=== PATIENT | female | born 1995 | race Caucasian/White ===

== ENCOUNTER 2020-04-13 21:05 | Emergency (ER) | payer OTHER ==
[2020-04-13] MEDS ORDERED: Sodium Chloride 0.9% 1000 ML 1,000 ML IV STA (21:16)
[2020-04-13] MEDS ORDERED: Zofran 4 MG/2 ML VIAL IV ONE (21:16)
[2020-04-13] MEDS ORDERED: Hydromorphone 1 mg/ml Ampule IV ONE ×2 (21:16→22:33)
[2020-04-13] MEDS ORDERED: TORAdol 30 mg Injection IV ONE (21:16)
[2020-04-13] MEDS ORDERED: Hydromorphone 1 mg/ml Ampule ONE ×2 (21:20→22:33)
[2020-04-13] MEDS ORDERED: Zofran 4 MG/2 ML VIAL ONE (21:20)
[2020-04-13] MEDS ORDERED: TORAdol 30 mg Injection ONE (21:20)
[2020-04-13] MEDS ORDERED: Sodium Chloride 0.9% 1000 ML 1,000 ML ONE (21:20)
[2020-04-13 21:54] LABS: Absolute Neutrophil Ct (ANC) 3.74 (1.4-6.9); BASOPHIL % 0.3 % (0.0-0.4); Basophil (Absolute #) 0.02 (0-0.4); Eosinophil (Absolute #) 0.06 (0-0.5); Hematocrit 40.3 % (35-47); Hemoglobin 13.3 gm/dl (12.0-16.0); Lymphocyte (Absolute #) 1.86 (1.0-4.6); Lymphocytes % 30.1 % (24.0-44.0); Mean Cell Volume 92.2 fl (78-100); Mean Corpuscular Hemoglobin 30.4 pg (26-32); Mean Platelet Volume 9.6 fl (7.5-11.0); Monocyte (Absolute #) 0.49 (0.0-1.3); Monocytes % 7.9 % (0.0-12.0); Neutrophil % 60.7 % (36.0-66.0); Platelet Count 328 K/mm3 (150-450); Red Blood Count 4.37 M/mm3 (4.1-5.4); White Blood Count 6.2 K/mm3 (4.0-10.5)
[2020-04-13 22:10] LABS: ALBUMIN 4.4 g/dL (3.5-5.0); ALKALINE PHOSPHATASE 78 U/L (38-126); AMYLASE 93 U/L (30-110); ANION GAP 12.2 MEQ/L (5-15); BLOOD UREA NITROGEN 11 mg/dL (7-17); CHLORIDE 104 mmol/L (98-107); Calcium 9.4 mg/dL (8.4-10.2); Carbon Dioxide 25 mmol/L (22-30); Glucose 120 mg/dL (74-106); LIPASE 179 U/L (23-300); Potassium 3.8 mmol/L (3.5-5.1); SGOT/AST 21 U/L (14-36); SGPT/ALT 14 U/L (0-35); SODIUM 138 mmol/L (137-145); Total Protein 7.7 g/dL (6.3-8.2)
[2020-04-13 22:14] LABS: Appearance CLOUDY (CLEAR); Bilirubin NEGATIVE (NEGATIVE); Blood NEGATIVE Ery/ul (0-5); Glucose NEGATIVE (NEGATIVE); Ketones NEGATIVE (NEGATIVE); Leukocyte Esterase NEGATIVE (NEGATIVE); Mucus SLIGHT /HPF (NEGATIVE); Nitrite NEGATIVE (NEGATIVE); Protein,Urine Dip NEGATIVE (Negative); Specific Gravity 1.013 (1.005-1.025); Urobilinogen NEGATIVE mg/dL (0-1)
[2020-04-13 23:10] VITALS: O2SAT 99
[2020-04-13] MEDS ORDERED: NORCO 5/325 MG PO ONE (23:56)
--- NOTE | 2020-04-13 23:56 | ERPHSYRPT ---
- History of Present Illness Patient Subjective Stated Complaint: pt states that she was standing when she began to have severe abd pain, pt states that she has stomach problems, pt states that the pain is in her rt lower quad and radiates to back Triage Nursing Assessment: pt came into the er via wheelchair, pt is axo x3, pt in bend over and guarding RLQ, pt states that pain is 8/10, pt states that pain radiates to rt flank area, pt has active bowel sounds, tenderness to RLQ, hypertensive, clear lung sound Physician History: Patient is a 24-year-old female presents with a sudden onset approximately 1 hour prior to arrival of severe right colicky flank pain. She has had some nausea and some vomiting radiates into the vaginal area she has had no fever chills or sweats. Timing/Duration: today Activities at Onset: none Quality: stabbing, throbbing Abdominal Pain Onset Location: flank (Right flank) Pain Radiation: groin Severity of Pain-Max: moderate Severity of Pain-Current: moderate Modifying Factors: Improves With: nothing Allergies/Adverse Reactions: banana Allergy (Verified 04/13/20 21:15) latex Allergy (Verified 04/13/20 21:15) mold Allergy (Verified 04/13/20 21:15) Home Medications: Diltiazem HCl [Diltiazem 12Hr ER] 120 mg PO 04/13/20 [History] Levonorgestrel-Ethin Estradiol [[place]iss[place]-28 Tablet] 1 tab PO DAILY 04/13/20 [History] Hx Tetanus, Diphtheria Vaccination/Date Given: Yes Hx Influenza Vaccination/Date Given: Yes Hx Pneumococcal Vaccination/Date Given: No Travel Risk - International Travel Have you traveled outside of the country in past 3 weeks: No - Coronavirus Screening Are you exhibiting any of the following symptoms?: No Symptoms: Vomiting/Diarrhea Close contact with a COVID-19 positive Pt in past 14-21 Days: No - Review of Systems Constitutional: No Fever, No Chills Eyes: No Symptoms Ears, Nose, & Throat: No Symptoms Respiratory: No Cough, No Dyspnea Cardiac: No Chest Pain, No Edema, No Syncope Abdominal/Gastrointestinal: Nausea, Vomiting, No Abdominal Pain, No Diarrhea Genitourinary Symptoms: Flank Pain, No Dysuria Musculoskeletal: No Back Pain, No Neck Pain Skin: No Rash Neurological: No Dizziness, No Focal Weakness, No Sensory Changes Psychological: No Symptoms Endocrine: No Symptoms All Other Systems: Reviewed and Negative - Past Medical History Pertinent Past Medical History: Yes Cardiac History: Hypertension - Past Surgical History Past Surgical History: Yes - Social History Smoking Status: Never smoker Exposure to second hand smoke: Yes Drug Use: none Patient Lives Alone: No - Female History Hx Now: No (unknown) - Nursing Vital Signs Nursing Vital Signs: Initial Vital Signs Temperature 97.4 F 04/13/20 21:18 Pulse Rate 115 H 04/13/20 21:18 Respiratory Rate 24 04/13/20 21:18 Blood Pressure 175/133 04/13/20 21:18 O2 Sat by Pulse Oximetry 100 04/13/20 21:18 Pain Scale Pain Intensity 5 - Physical Exam General Appearance: no apparent distress, alert Eye Exam: PERRL/EOMI, eyes nml inspection Ears, Nose, Throat Exam: normal ENT inspection, pharynx normal, moist mucous membranes Neck Exam: normal inspection, non-tender, supple, full range of motion Respiratory Exam: normal breath sounds, lungs clear, No respiratory distress Cardiovascular Exam: regular rate/rhythm, normal heart sounds Gastrointestinal/Abdomen Exam: soft, No tenderness, No mass Back Exam: normal inspection, normal range of motion, No CVA tenderness, No vertebral tenderness Extremity Exam: normal inspection, normal range of motion, pelvis stable Neurologic Exam: alert, oriented x 3, cooperative, normal mood/affect, nml cerebellar function, sensation nml, No motor deficits Skin Exam: normal color, warm, dry SpO2: 99 - Course Nursing assessment & vital signs reviewed: Yes - CT Exams Abdomen/Pelvis CT Interpretation: Other (No acute inflammatory process identified) Ordered Tests: Active Orders 24 hr Category Date Time Status IV Insertion STAT Care 04/13/20 21:16 Active ABDOMEN AND PELVIS W CONTRAST [CT] Stat Exams 04/13/20 22:34 Taken CHEST 1 VIEW (PORTABLE) Stat Exams 04/13/20 21:16 Taken AMYLASE Stat Lab 04/13/20 21:30 Completed CBC W DIFF Stat Lab 04/13/20 21:30 Completed CMP Stat Lab 04/13/20 21:30 Completed HCG QUALITATIVE,SERUM Stat Lab 04/13/20 21:30 Completed LIPASE Stat Lab 04/13/20 21:30 Completed Lactic Acid Stat Lab 04/13/20 21:46 Completed UA W/RFX UR CULTURE Stat Lab 04/13/20 21:30 Completed Medication Summary Discontinued Medications Generic Name Dose Route Start Last Admin Trade Name Kamaljit PRN Reason Stop Dose Admin Hydromorphone HCl 1 mg 04/13/20 21:16 04/13/20 21:44 Hydromorphone 1 Mg/Ml Ampule IV 04/13/20 21:17 1 mg STAT ONE Administration Hydromorphone HCl Confirm 04/13/20 21:20 Hydromorphone 1 Mg/Ml Ampule Administered 04/13/20 21:21 Dose 1 mg .ROUTE .STK-MED ONE Hydromorphone HCl 1 mg 04/13/20 22:33 04/13/20 22:34 Hydromorphone 1 Mg/Ml Ampule IV 04/13/20 22:34 1 mg STAT ONE Administration Hydromorphone HCl Confirm 04/13/20 22:33 Hydromorphone 1 Mg/Ml Ampule Administered 04/13/20 22:34 Dose 1 mg .ROUTE .STK-MED ONE Sodium Chloride 1,000 mls @ 999 mls/hr 04/13/20 21:16 04/13/20 22:45 Sodium Chloride 0.9% 1000 Ml IV 04/13/20 22:16 Infused .Q1H1M STA Infusion Sodium Chloride Confirm 04/13/20 21:20 Sodium Chloride 0.9% 1000 Ml Administered 04/13/20 21:21 Dose 1,000 mls @ ud .ROUTE .STK-MED ONE Ketorolac Tromethamine 30 mg 04/13/20 21:16 04/13/20 21:44 Toradol 30 Mg Injection IV 04/13/20 21:17 30 mg STAT ONE Administration Ketorolac Tromethamine Confirm 04/13/20 21:20 Toradol 30 Mg Injection Administered 04/13/20 21:21 Dose 30 mg .ROUTE .STK-MED ONE Ondansetron HCl 4 mg 04/13/20 21:16 04/13/20 21:44 Zofran 4 Mg/2 Ml Vial IV 04/13/20 21:17 4 mg STAT ONE Administration Ondansetron HCl Confirm 04/13/20 21:20 Zofran 4 Mg/2 Ml Vial Administered 04/13/20 21:21 Dose 4 mg .ROUTE .STK-MED ONE Lab/Rad Data: Laboratory Result Diagrams 04/13/20 21:30 04/13/20 21:30 Laboratory Results 04/13/20 04/13/20 04/13/20 Range/Units 21:46 21:30 21:30 WBC (4.0-10.5) K/mm3 RBC (4.1-5.4) M/mm3 Hgb (12.0-16.0) gm/dl Hct (35-47) % MCV (78-100) fl MCH (26-32) pg MCHC (32-36) g/dl RDW (11.5-14.0) % Plt Count (150-450) K/mm3 MPV (7.5-11.0) fl Gran % (36.0-66.0) % Eos # (Auto) (0-0.5) Absolute Lymphs (auto) (1.0-4.6) Absolute Monos (auto) (0.0-1.3) Lymphocytes % (24.0-44.0) % Monocytes % (0.0-12.0) % Eosinophils % (0.00-5.0) % Basophils % (0.0-0.4) % Absolute Granulocytes (1.4-6.9) Basophils # (0-0.4) Sodium (137-145) mmol/L Potassium (3.5-5.1) mmol/L Chloride (98-107) mmol/L Carbon Dioxide (22-30) mmol/L Anion Gap (5-15) MEQ/L BUN (7-17) mg/dL Creatinine (0.52-1.04) mg/dL Estimated GFR ML/MIN Glucose (74-106) mg/dL Lactic Acid 2.4 H (0.4-2.0) Calcium (8.4-10.2) mg/dL Total Bilirubin (0.2-1.3) mg/dL AST (14-36) U/L ALT (0-35) U/L Alkaline Phosphatase (38-126) U/L Serum Total Protein (6.3-8.2) g/dL Albumin (3.5-5.0) g/dL Amylase (30-110) U/L Lipase (23-300) U/L Serum , Qual NEGATIVE (Negative) Urine Color YELLOW (YELLOW) Urine Appearance CLOUDY (CLEAR) Urine pH 9.0 (5-6) Ur Specific [place] 1.013 (1.005-1.025) Urine Protein NEGATIVE (Negative) Urine Ketones NEGATIVE (NEGATIVE) Urine Blood NEGATIVE (0-5) Joshua/ul Urine Nitrite NEGATIVE (NEGATIVE) Urine Bilirubin NEGATIVE (NEGATIVE) Urine Urobilinogen NEGATIVE (0-1) mg/dL Ur Leukocyte Esterase NEGATIVE (NEGATIVE) Urine WBC (Auto) NONE (0-5) /HPF Urine RBC (Auto) 3-5 (0-2) /HPF U Epithel Cells (Auto) NONE (FEW) /HPF Urine Bacteria (Auto) NONE (NEGATIVE) /HPF Urine Mucus (Auto) SLIGHT (NEGATIVE) /HPF Urine Culture Reflexed NO (NO) Urine Glucose NEGATIVE (NEGATIVE) mg/dL 04/13/20 04/13/20 Range/Units 21:30 21:30 WBC 6.2 (4.0-10.5) K/mm3 RBC 4.37 (4.1-5.4) M/mm3 Hgb 13.3 (12.0-16.0) gm/dl Hct 40.3 (35-47) % MCV 92.2 (78-100) fl MCH 30.4 (26-32) pg MCHC 33.0 (32-36) g/dl RDW 13.0 (11.5-14.0) % Plt Count 328 (150-450) K/mm3 MPV 9.6 (7.5-11.0) fl Gran % 60.7 (36.0-66.0) % Eos # (Auto) 0.06 (0-0.5) Absolute Lymphs (auto) 1.86 (1.0-4.6) Absolute Monos (auto) 0.49 (0.0-1.3) Lymphocytes % 30.1 (24.0-44.0) % Monocytes % 7.9 (0.0-12.0) % Eosinophils % 1.0 (0.00-5.0) % Basophils % 0.3 (0.0-0.4) % Absolute Granulocytes 3.74 (1.4-6.9) Basophils # 0.02 (0-0.4) Sodium 138 (137-145) mmol/L Potassium 3.8 (3.5-5.1) mmol/L Chloride 104 (98-107) mmol/L Carbon Dioxide 25 (22-30) mmol/L Anion Gap 12.2 (5-15) MEQ/L BUN 11 (7-17) mg/dL Creatinine 0.90 (0.52-1.04) mg/dL Estimated GFR > 60.0 ML/MIN Glucose 120 H (74-106) mg/dL Lactic Acid (0.4-2.0) Calcium 9.4 (8.4-10.2) mg/dL Total Bilirubin 0.50 (0.2-1.3) mg/dL AST 21 (14-36) U/L ALT 14 (0-35) U/L Alkaline Phosphatase 78 (38-126) U/L Serum Total Protein 7.7 (6.3-8.2) g/dL Albumin 4.4 (3.5-5.0) g/dL Amylase 93 (30-110) U/L Lipase 179 (23-300) U/L Serum , Qual (Negative) Urine Color (YELLOW) Urine Appearance (CLEAR) Urine pH (5-6) Ur Specific [place] (1.005-1.025) Urine Protein (Negative) Urine Ketones (NEGATIVE) Urine Blood (0-5) Joshua/ul Urine Nitrite (NEGATIVE) Urine Bilirubin (NEGATIVE) Urine Urobilinogen (0-1) mg/dL Ur Leukocyte Esterase (NEGATIVE) Urine WBC (Auto) (0-5) /HPF Urine RBC (Auto) (0-2) /HPF U Epithel Cells (Auto) (FEW) /HPF Urine Bacteria (Auto) (NEGATIVE) /HPF Urine Mucus (Auto) (NEGATIVE) /HPF Urine Culture Reflexed (NO) Urine Glucose (NEGATIVE) mg/dL - Progress Progress: improved - Departure Departure Disposition: Home Clinical Impression: Right flank pain Condition: Stable Critical Care Time: No Referrals: PEYTON LARA NP [Primary Care Provider] - Instructions: Acute Abdomen (Belly Pain), Adult (DC) Prescriptions: Hydrocodone/APAP 5-325 Tab^^^ [[place] 5-325 Tablet^^^] 1 each PO Q6H 3 Days #12 tablet MDD 6
[2020-04-14] MEDS ORDERED: NORCO 5/325 MG ONE (00:03)
[2020-04-14 00:23] VITALS: BP 146/106; PULSE 120
--- NOTE | 2020-04-14 09:20 | XRAY ---
Indication: Abdomen pain. Comparison: None Portable chest demonstrates normal heart, lungs, and bony thorax.
--- NOTE | 2020-04-14 09:20 | XRAY ---
Indication: Right lower quadrant pain. Vomiting and diarrhea. Multiple contiguous axial images obtained through the abdomen and pelvis using 80 cc Isovue 370 contrast only. Comparison: August 18, 2011. Lung bases demonstrates new 7 mm peripheral right lower lobe noncalcified nodule, possibly granulomatous in this demographic. No infiltrate or effusion. Heart is not enlarged. Stomach is distended with food. Noncontrasted stomach and bowel loops appear nonobstructed. Normal appendix. Mild diffuse scattered colonic fecal debris throughout. No free fluid/air. New 2 mm left pelvic phlebolith. Remaining liver, gallbladder, pancreas, spleen, adrenal glands, kidneys, ureters, bladder, uterus, and aorta appear unremarkable. Osseous structures intact. No ventral or inguinal hernias. Impression: 1. Mild fecal stasis without obstruction. 2. New right lower lobe noncalcified micronodule probably granulomatous. 3. Remaining CT abdomen/pelvis with contrast exam is negative. Comment: Preliminary interpretation was made by [facility]. No critical discrepancy.
== END 2020-04-14 00:16 | disposition home or self-care (01) ==
LOC: ED 21:05
DX: R10.31 Right lower quadrant pain (principal); I10 Essential (primary) hypertension
CPT/HCPCS: 36000; 36415; 71045; 74177; 80053; 81001; 81025; 82150; 83605; 83690; 85025; 96360; 96374; 96375; 96376; 99284; J1170; J1885; J2405; A9270-GY

== ENCOUNTER 2021-02-20 16:55 | Emergency (ER) | payer OTHER ==
[2021-02-20 17:45] LABS: ALBUMIN 4.4 g/dL (3.5-5.0); ALKALINE PHOSPHATASE 85 U/L (38-126); BLOOD UREA NITROGEN 9 mg/dL (7-17); CHLORIDE 103 mmol/L (98-107); Calcium 9.5 mg/dL (8.4-10.2); Carbon Dioxide 24 mmol/L (22-30); Creatinine 1 0.58 mg/dL (0.52-1.04); EST GLOMERULAR FILTRATION RATE > 60.0 ML/MIN; Glucose 100 mg/dL (74-106); Potassium 3.6 mmol/L (3.5-5.1); SGOT/AST 24 U/L (14-36); SGPT/ALT 17 U/L (0-35); SODIUM 135 mmol/L (137-145); Total Protein 7.2 g/dL (6.3-8.2)
[2021-02-20 17:48] LABS: Amourphous Crystal FEW /HPF (NEGATIVE); Appearance CLOUDY (CLEAR); Bacteria RARE /HPF (NEGATIVE); Bilirubin NEGATIVE (NEGATIVE); Blood NEGATIVE Ery/ul (0-5); Epithelial Cells RARE /HPF (FEW); Glucose NEGATIVE (NEGATIVE); Ketones TRACE (NEGATIVE); Leukocyte Esterase NEGATIVE (NEGATIVE); Mucus SLIGHT /HPF (NEGATIVE); Nitrite NEGATIVE (NEGATIVE); Protein,Urine Dip NEGATIVE (Negative); RBC 0-2 /HPF (0-2); Specific Gravity 1.018 (1.005-1.025); Urobilinogen 2 mg/dL (0-1)
[2021-02-20] MEDS ORDERED: TRANDATE 20 MG/4 ML SYRINGE IV ONE ×2 (18:21→18:23)
[2021-02-20] MEDS ORDERED: Zofran 4 MG/2 ML VIAL IV ONE (19:01)
[2021-02-20] MEDS ORDERED: SUBLIMAZE 100 MCG/2 ML IV ONE (19:01)
[2021-02-20] MEDS ORDERED: SUBLIMAZE 100 MCG/2 ML ONE (19:02)
[2021-02-20] MEDS ORDERED: Zofran 4 MG/2 ML VIAL ONE (19:02)
--- NOTE | 2021-02-20 19:07 | ERPHSYRPT ---
- History of Present Illness Source: patient Patient Subjective Stated Complaint: States that she is 9 weeks and her blood pressure was 140/[address] Rose told her to come to the ER, pt has a hx of htn and they took her off of her blood pressure medicine when they found out she was Triage Nursing Assessment: Pt was brought to the ER by her boyfriend, rates head pain as 6/10, hypertensive, bounding pulses, skin n/w/d, 9 weeks , doesn't appear to be in any distress Physician History: 25 yo wf 10wks w h/o HTN who was taking Lisinopril/Lopressor until her 4th wk of present w a frontal FRANCO since 15:00 w elevated BP. Pt states that she gets a FRANCO when her BP is elevated. Pt has her typical N/V as she has had during her but denies trauma/focal weakness/fever. Spoke w Dr. Rose who wants to tx HTN w Labetalol IV and Labetalol 100mg po BID. Pt denies vag bleeding/DC. Timing/Duration: yesterday Quality: aching Head Pain Location: frontal Severity of Pain-Max: moderate Severity of Pain-Current: moderate Recent Head Trauma: occasional headaches Modifying Factors: Improves With: other (Elevated BP). Worsens With: exposure to light, immobilization, medication, movement, rest, noise, position Associated Symptoms: nausea/vomiting, weakness, No confusion, No dizziness, No fatigue, No facial pain, No fever/chills, No flushing, No light-headedness, No loss of consciousness, No nasal congestion, No nasal drainage, No neck pain, No numbness in legs/feet, No rash, No sweating, No scotoma, No seizures, No sinus i nfection, No sensitive to light, No speech problems, No stiff neck, No trouble walking, No vision changes, No visual disturbance Allergies/Adverse Reactions: avocado Allergy (Verified 02/20/21 17:16) banana Allergy (Verified 02/20/21 17:16) latex Allergy (Verified 02/20/21 17:16) mold Allergy (Verified 02/20/21 17:16) Home Medications: Vits W-Ca,Fe,FA(<1Mg) [] 1 each PO DAILY 02/20/21 [History] Hx Tetanus, Diphtheria Vaccination/Date Given: Yes Hx Influenza Vaccination/Date Given: Yes Hx Pneumococcal Vaccination/Date Given: No Travel Risk - International Travel Have you traveled outside of the country in past 3 weeks: No - Coronavirus Screening Are you exhibiting any of the following symptoms?: No Close contact with a COVID-19 positive Pt in past 14-21 Days: No - Vaccine Status Have you recieved a Covid-19 vaccination: No - Review of Systems Constitutional: No Symptoms Eyes: No Symptoms Ears, Nose, & Throat: No Symptoms Respiratory: No Symptoms Cardiac: No Symptoms Abdominal/Gastrointestinal: No Symptoms Genitourinary Symptoms: No Symptoms Musculoskeletal: No Symptoms Skin: No Symptoms Neurological: No Symptoms, Headache Psychological: No Symptoms Endocrine: No Symptoms Hematologic/Lymphatic: No Symptoms Immunological/Allergic: No Symptoms - Past Medical History Pertinent Past Medical History: Yes Cardiac History: Hypertension - Past Surgical History Past Surgical History: Yes - Social History Smoking Status: Never smoker Exposure to second hand smoke: Yes Drug Use: none Patient Lives Alone: No Significant Family History: no pertinent family hx - Female History Hx Now: Yes Expected Date of Delivery: 09/19/21 - Nursing Vital Signs Nursing Vital Signs: Initial Vital Signs Pulse Rate 122 H 02/20/21 17:06 Blood Pressure 173/113 02/20/21 17:06 O2 Sat by Pulse Oximetry 100 02/20/21 17:06 Pain Scale Pain Intensity 0 - Physical Exam General Appearance: no apparent distress Eye Exam: PERRL/EOMI, eyes nml inspection Ears, Nose, Throat Exam: normal ENT inspection, TMs normal, pharynx normal, moist mucous membranes Neck Exam: normal inspection, non-tender, supple, full range of motion, No meningismus, No mass, No Brudzinski, No Kernig's Respiratory Exam: normal breath sounds, lungs clear, airway intact Cardiovascular Exam: regular rate/rhythm, normal heart sounds, normal peripheral pulses, No murmur Gastrointestinal/Abdominal Exam: soft, normal bowel sounds, No tenderness Back Exam: normal inspection, normal range of motion, No CVA tenderness Extremity Exam: normal inspection, normal range of motion Mental Status Exam: alert, oriented x 3, cooperative formwork carpenter Exam: normal hearing, normal speech, PERRL Coordination/Gait Exam: normal finger to nose, normal gait, normal cerebellar function Motor/Sensory Exam: no motor deficit, no sensory deficit, no pronator drift, negative Babinski's sign DTR Exam: bicep (R): 2+, bicep (L): 2+ Skin Exam: normal color, warm, dry Lymphatic Exam: No adenopathy SpO2 Interpretation: normal SpO2: 99 O2 Delivery: Room Air - Course Nursing assessment & vital signs reviewed: Yes Ordered Tests: Active Orders 24 hr Category Date Time Status IV Insertion STAT Care 02/20/21 17:17 Completed CMP Stat Lab 02/20/21 17:35 Completed UA W/RFX UR CULTURE Stat Lab 02/20/21 17:34 Completed Medication Summary Discontinued Medications Generic Name Dose Route Start Last Admin Trade Name Yarielq PRN Reason Stop Dose Admin Fentanyl Citrate 50 mcg 02/20/21 19:01 02/20/21 19:04 Sublimaze 100 Mcg/2 Ml IV 02/20/21 19:02 50 mcg STAT ONE Administration Fentanyl Citrate Confirm 02/20/21 19:02 Sublimaze 100 Mcg/2 Ml Administered 02/20/21 19:03 Dose 100 mcg .ROUTE .STK-MED ONE Labetalol HCl 10 mg 02/20/21 18:21 02/20/21 18:24 Trandate 20 Mg/4 Ml Syringe IV 02/20/21 18:22 10 mg STAT ONE Administration Labetalol HCl Confirm 02/20/21 18:23 Trandate 20 Mg/4 Ml Syringe Administered 02/20/21 18:24 Dose 20 mg IV .STK-MED ONE Labetalol HCl 100 mg 02/20/21 19:32 02/20/21 19:46 Trandate 100 Mg PO 02/20/21 19:33 100 mg STAT ONE Administration Ondansetron HCl 4 mg 02/20/21 19:01 02/20/21 19:04 Zofran 4 Mg/2 Ml Vial IV 02/20/21 19:02 4 mg STAT ONE Administration Ondansetron HCl Confirm 02/20/21 19:02 Zofran 4 Mg/2 Ml Vial Administered 02/20/21 19:03 Dose 4 mg .ROUTE .STK-MED ONE Lab/Rad Data: Laboratory Result Diagrams 02/20/21 17:35 Laboratory Results 02/20/21 02/20/21 Range/Units 17:35 17:34 Sodium 135 L (137-145) mmol/L Potassium 3.6 (3.5-5.1) mmol/L Chloride 103 (98-107) mmol/L Carbon Dioxide 24 (22-30) mmol/L Anion Gap 12.0 (5-15) MEQ/L BUN 9 (7-17) mg/dL Creatinine 0.58 (0.52-1.04) mg/dL Estimated GFR > 60.0 ML/MIN Glucose 100 (74-106) mg/dL Calcium 9.5 (8.4-10.2) mg/dL Total Bilirubin 0.50 (0.2-1.3) mg/dL AST 24 (14-36) U/L ALT 17 (0-35) U/L Alkaline Phosphatase 85 (38-126) U/L Serum Total Protein 7.2 (6.3-8.2) g/dL Albumin 4.4 (3.5-5.0) g/dL Urine Color YELLOW (YELLOW) Urine Appearance CLOUDY (CLEAR) Urine pH 7.0 (5-6) Ur Specific [place] 1.018 (1.005-1.025) Urine Protein NEGATIVE (Negative) Urine Ketones TRACE (NEGATIVE) Urine Blood NEGATIVE (0-5) Joshua/ul Urine Nitrite NEGATIVE (NEGATIVE) Urine Bilirubin NEGATIVE (NEGATIVE) Urine Urobilinogen 2 (0-1) mg/dL Ur Leukocyte Esterase NEGATIVE (NEGATIVE) Urine WBC (Auto) 3-5 (0-5) /HPF Urine RBC (Auto) 0-2 (0-2) /HPF U Epithel Cells (Auto) RARE (FEW) /HPF Urine Bacteria (Auto) RARE (NEGATIVE) /HPF Amorphous Crystals FEW (NEGATIVE) /HPF Urine Mucus (Auto) SLIGHT (NEGATIVE) /HPF Urine Culture Reflexed NO (NO) Urine Glucose NEGATIVE (NEGATIVE) mg/dL - Progress Progress Note: 02/20/21 19:[address] Rose, wants to ts BP w IV Labetalol and Rx po Labetalol 100mg po bid. OK to use anything for pain per Dr. Rose. BP mildly improved after 10mg IV Labetalol. Pain improved to 2/10 after 50umg IV Fentanyl/4mg IV Zofran 100mg po labetalol before discharge. Discussed with : Wilmer Counseled pt/family regarding: lab results, diagnosis, need for follow-up - Departure Departure Disposition: Home Clinical Impression: Hypertension affecting in first trimester, Headache Condition: Stable Critical Care Time: No Referrals: PEYTON LARA NP [Primary Care Provider] - Instructions: High Blood Pressure and , Headache, Adult (DC) Additional Instructions: Dr. Rose wants to see you in office next Start Labetalol 100mg twice a day Return to ER for increasing pain/focal weakness/Temperature greater than 100.5 Prescriptions: Labetalol HCl 100 mg [Trandate 100 MG] 100 mg PO BID #30 tablet
[2021-02-20 19:31] VITALS: BP 132/81
[2021-02-20] MEDS ORDERED: Trandate 100 MG PO ONE (19:32)
[2021-02-20 19:51] VITALS: PULSE 88
[2021-02-20 21:11] VITALS: O2SAT 99
== END 2021-02-20 19:51 | disposition home or self-care (01) ==
LOC: ED 16:55
DX: O16.1 Unspecified maternal hypertension, first trimester (principal); Z3A.09 9 weeks gestation of pregnancy
CPT/HCPCS: 36000; 36415; 80053; 81001; 96374; 96375; 99284; J2405; J3010; A9270-GY

== ENCOUNTER 2021-03-11 08:22 | Emergency (ER) | payer OTHER ==
[2021-03-11] MEDS ORDERED: Zofran 4 MG/2 ML VIAL IV ONE (08:27)
[2021-03-11] MEDS ORDERED: Sodium Chloride 0.9% 1000 ML 1,000 ML IV STA ×2 (08:27→09:58)
--- NOTE | 2021-03-11 08:28 | ERPHSYRPT ---
- History of Present Illness Time Seen by Provider: 03/11/21 08:27 Historian: patient, family Exam Limitations: no limitations Physician History: This is a 25-year-old white female who is approximately 12-1/2 weeks who has had nausea and vomiting throughout her first 12-1/2 weeks of . Patient states for the last 3 days she has been having several episodes of vomiting and currently states that she cannot hold any fluids down. She states that she has a headache from vomiting so much. She has no abdominal pain. She denies vaginal bleeding. She has no hematuria or dysuria. She has no flank pain. She feels rundown from vomiting so many times. She denies shortness of breath she denies chest pain. Patient is taking doxylamine/vitamin B6 medi cation to help control vomiting. It is currently ineffective for her. Timing/Duration: day(s) (3) Activities at Onset: none Abdominal Pain Onset Location: other (None) Pain Radiation: no radiation Severity of Pain-Max: none Severity of Pain-Current: none Modifying Factors: Improves With: vomiting Associated Symptoms: headache, nausea, vomiting, No chest pain, No loss of appetite (She states secondary to vomiting) Previous symptoms: no prior history Allergies/Adverse Reactions: avocado Allergy (Verified 03/11/21 08:27) banana Allergy (Verified 03/11/21 08:27) Influenza Virus Vaccines Allergy (Verified 03/11/21 09:06) latex Allergy (Verified 03/11/21 08:27) mold Allergy (Verified 03/11/21 08:27) Home Medications: Vits W-Ca,Fe,FA(<1Mg) [] 1 each PO DAILY 02/20/21 [History] Doxylamine Succinate/Vit B6 [Doxylamine-Pyridoxine 10-10 mg] 2 tab PO DAILY 03/11/21 [History] Hx Tetanus, Diphtheria Vaccination/Date Given: Yes Hx Influenza Vaccination/Date Given: Yes Hx Pneumococcal Vaccination/Date Given: No Travel Risk - International Travel Have you traveled outside of the country in past 3 weeks: No - Coronavirus Screening Are you exhibiting any of the following symptoms?: No Close contact with a COVID-19 positive Pt in past 14-21 Days: No - Vaccine Status Have you recieved a Covid-19 vaccination: No - Review of Systems Constitutional: Weakness Eyes: No Symptoms Ears, Nose, & Throat: No Symptoms Respiratory: No Symptoms Cardiac: No Symptoms Abdominal/Gastrointestinal: Nausea, Vomiting, No Abdominal Pain, No Diarrhea Genitourinary Symptoms: No Symptoms Musculoskeletal: No Symptoms Skin: No Symptoms Neurological: No Symptoms Psychological: No Symptoms Endocrine: No Symptoms Hematologic/Lymphatic: No Symptoms Immunological/Allergic: No Symptoms All Other Systems: Reviewed and Negative - Past Medical History Pertinent Past Medical History: Yes Cardiac History: Hypertension - Past Surgical History Past Surgical History: Yes - Social History Smoking Status: Never smoker Exposure to second hand smoke: Yes Drug Use: none Patient Lives Alone: No Significant Family History: no pertinent family hx - Nursing Vital Signs Nursing Vital Signs: Initial Vital Signs Temperature 98.2 F 03/11/21 08:30 Pulse Rate 118 H 03/11/21 08:30 Respiratory Rate 18 03/11/21 08:30 Blood Pressure 156/97 03/11/21 08:30 O2 Sat by Pulse Oximetry 100 03/11/21 08:30 Pain Scale Pain Intensity 0 - Physical Exam General Appearance: no apparent distress, alert, anxiety Eye Exam: PERRL/EOMI, eyes nml inspection Ears, Nose, Throat Exam: normal ENT inspection, moist mucous membranes Neck Exam: normal inspection, non-tender, supple, full range of motion Respiratory Exam: normal breath sounds, lungs clear, airway intact, No chest tenderness, No respiratory distress Cardiovascular Exam: tachycardia (Mild) Gastrointestinal/Abdomen Exam: soft, normal bowel sounds, No tenderness Pelvic Exam: not done Rectal Exam: not done Back Exam: normal inspection, normal range of motion, No CVA tenderness Extremity Exam: normal inspection, normal range of motion, pelvis stable Neurologic Exam: alert, oriented x 3, cooperative, propagation worker II-XII nml as tested, normal mood/affect, nml cerebellar function, nml station & gait, sensation nml Skin Exam: normal color, warm, dry Lymphatic Exam: No adenopathy SpO2 Interpretation: normal O2 Delivery: Room Air - Course Nursing assessment & vital signs reviewed: Yes Ordered Tests: Active Orders 24 hr Category Date Time Status IV Insertion STAT Care 03/11/21 08:27 Active CBC W DIFF Stat Lab 03/11/21 08:40 Completed CULTURE,URINE Stat Lab 03/11/21 10:20 Received Lactic Acid Stat Lab 03/11/21 08:41 Completed Lactic Acid Stat Lab 03/11/21 10:45 Received UA W/RFX UR CULTURE Stat Lab 03/11/21 10:20 Completed Medication Summary Discontinued Medications Generic Name Dose Route Start Last Admin Trade Name Kamaljit PRN Reason Stop Dose Admin Sodium Chloride 1,000 mls @ 999 mls/hr 03/11/21 08:27 03/11/21 09:56 Sodium Chloride 0.9% 1000 Ml IV 03/11/21 09:27 Infused .Q1H1M STA Infusion Sodium Chloride Confirm 03/11/21 08:44 Sodium Chloride 0.9% 1000 Ml Administered 03/11/21 08:45 Dose 1,000 mls @ ud .ROUTE .STK-MED ONE Sodium Chloride 1,000 mls @ 999 mls/hr 03/11/21 09:58 03/11/21 10:01 Sodium Chloride 0.9% 1000 Ml IV 03/11/21 10:58 999 mls/hr .Q1H1M STA Administration Sodium Chloride Confirm 03/11/21 10:01 Sodium Chloride 0.9% 1000 Ml Administered 03/11/21 10:02 Dose 1,000 mls @ ud .ROUTE .STK-MED ONE Ondansetron HCl 4 mg 03/11/21 08:27 03/11/21 08:45 Zofran 4 Mg/2 Ml Vial IV 03/11/21 08:28 4 mg STAT ONE Administration Ondansetron HCl Confirm 03/11/21 08:44 Zofran 4 Mg/2 Ml Vial Administered 03/11/21 08:45 Dose 4 mg .ROUTE .STK-MED ONE Lab/Rad Data: Laboratory Result Diagrams 03/11/21 08:40 03/11/21 08:27 Laboratory Results 03/11/21 03/11/21 03/11/21 Range/Units 10:20 08:41 08:40 WBC 11.2 H (4.0-10.5) K/mm3 RBC 3.95 L (4.1-5.4) M/mm3 Hgb 12.0 (12.0-16.0) gm/dl Hct 36.1 (35-47) % MCV 91.4 (78-100) fl MCH 30.4 (26-32) pg MCHC 33.2 (32-36) g/dl RDW 12.7 (11.5-14.0) % Plt Count 279 (150-450) K/mm3 MPV 8.7 (7.5-11.0) fl Gran % 87.1 H (36.0-66.0) % Eos # (Auto) 0.01 (0-0.5) Absolute Lymphs (auto) 0.64 L (1.0-4.6) Absolute Monos (auto) 0.78 (0.0-1.3) Lymphocytes % 5.7 L (24.0-44.0) % Monocytes % 7.0 (0.0-12.0) % Eosinophils % 0.1 (0.00-5.0) % Basophils % 0.1 (0.0-0.4) % Absolute Granulocytes 9.75 H (1.4-6.9) Basophils # 0.01 (0-0.4) Sodium Direct (138-146) mmol/L Potassium (3.5-4.9) mmol/L Chloride (98-109) mmol/L Carbon Dioxide (24-29) mmol/L Venous BUN (8-26) mg/dL Creatinine (0.6-1.3) mg/dL Glucose (70-105) mg/dL Lactic Acid 2.0 (0.4-2.0) Ionized Calcium (1.12-1.32) mmol/L Urine Color YELLOW (YELLOW) Urine Appearance SLIGHTLY CLOUDY (CLEAR) Urine pH 6.0 (5-6) Ur Specific [place] 1.008 (1.005-1.025) Urine Protein NEGATIVE (Negative) Urine Ketones TRACE (NEGATIVE) Urine Blood SMALL (0-5) Joshua/ul Urine Nitrite NEGATIVE (NEGATIVE) Urine Bilirubin NEGATIVE (NEGATIVE) Urine Urobilinogen NEGATIVE (0-1) mg/dL Ur Leukocyte Esterase NEGATIVE (NEGATIVE) Urine WBC (Auto) 6-10 (0-5) /HPF Urine RBC (Auto) 3-5 (0-2) /HPF U Epithel Cells (Auto) RARE (FEW) /HPF Urine Bacteria (Auto) MANY (NEGATIVE) /HPF Urine Mucus (Auto) SLIGHT (NEGATIVE) /HPF Urine Culture Reflexed YES (NO) Urine Glucose NEGATIVE (NEGATIVE) mg/dL 03/11/ Range/Units 08:27 WBC (4.0-10.5) K/mm3 RBC (4.1-5.4) M/mm3 Hgb (12.0-16.0) gm/dl Hct (35-47) % MCV (78-100) fl MCH (26-32) pg MCHC (32-36) g/dl RDW (11.5-14.0) % Plt Count (150-450) K/mm3 MPV (7.5-11.0) fl Gran % (36.0-66.0) % Eos # (Auto) (0-0.5) Absolute Lymphs (auto) (1.0-4.6) Absolute Monos (auto) (0.0-1.3) Lymphocytes % (24.0-44.0) % Monocytes % (0.0-12.0) % Eosinophils % (0.00-5.0) % Basophils % (0.0-0.4) % Absolute Granulocytes (1.4-6.9) Basophils # (0-0.4) Sodium Direct 136 L (138-146) mmol/L Potassium 3.6 (3.5-4.9) mmol/L Chloride 100 (98-109) mmol/L Carbon Dioxide 23 L (24-29) mmol/L Venous BUN 4 L (8-26) mg/dL Creatinine 0.5 L (0.6-1.3) mg/dL Glucose 116 H (70-105) mg/dL Lactic Acid (0.4-2.0) Ionized Calcium 1.18 (1.12-1.32) mmol/L Urine Color (YELLOW) Urine Appearance (CLEAR) Urine pH (5-6) Ur Specific [place] (1.005-1.025) Urine Protein (Negative) Urine Ketones (NEGATIVE) Urine Blood (0-5) Joshua/ul Urine Nitrite (NEGATIVE) Urine Bilirubin (NEGATIVE) Urine Urobilinogen (0-1) mg/dL Ur Leukocyte Esterase (NEGATIVE) Urine WBC (Auto) (0-5) /HPF Urine RBC (Auto) (0-2) /HPF U Epithel Cells (Auto) (FEW) /HPF Urine Bacteria (Auto) (NEGATIVE) /HPF Urine Mucus (Auto) (NEGATIVE) /HPF Urine Culture Reflexed (NO) Urine Glucose (NEGATIVE) mg/dL - Progress Progress: improved Counseled pt/family regarding: lab results, diagnosis, need for follow-up - Departure Departure Disposition: Home Clinical Impression: Urinary tract infection during in second trimester, antepartum, Vomiting affecting , antepartum Condition: Stable Critical Care Time: No Referrals: PEYTON LARA NP [Primary Care Provider] - Additional Instructions: Drink plenty of fluids. Take your medication as prescribed. Contact your primary care physician and community health program representative for further management. Return to the emergency department if symptoms worsen. Prescriptions: Ondansetron ODT 4 MG [Zofran Odt 4 mg] 4 mg PO Q6H PRN PRN #10 tab.rapdis PRN Reason: Vomiting Cephalexin Mh 500 mg [Keflex 500 mg] 500 mg PO TID #21 capsule
[2021-03-11] MEDS ORDERED: Zofran 4 MG/2 ML VIAL ONE (08:44)
[2021-03-11] MEDS ORDERED: Sodium Chloride 0.9% 1000 ML 1,000 ML ONE ×2 (08:44→10:01)
[2021-03-11 08:46] LABS: Absolute Neutrophil Ct (ANC) 9.75 (1.4-6.9); BASOPHIL % 0.1 % (0.0-0.4); Basophil (Absolute #) 0.01 (0-0.4); Eosinophil % 0.1 % (0.00-5.0); Eosinophil (Absolute #) 0.01 (0-0.5); Hematocrit 36.1 % (35-47); Lymphocyte (Absolute #) 0.64 (1.0-4.6); Lymphocytes % 5.7 % (24.0-44.0); Mean Cell Volume 91.4 fl (78-100); Mean Corpuscular Hemoglobin 30.4 pg (26-32); Mean Corpuscular Hgb Concent. 33.2 g/dl (32-36); Mean Platelet Volume 8.7 fl (7.5-11.0); Monocyte (Absolute #) 0.78 (0.0-1.3); Neutrophil % 87.1 % (36.0-66.0); Platelet Count 279 K/mm3 (150-450); Red Blood Count 3.95 M/mm3 (4.1-5.4); Red Cell Distribution Width 12.7 % (11.5-14.0); White Blood Count 11.2 K/mm3 (4.0-10.5)
[2021-03-11 09:01] LABS: ISTAT CREA 0.5 mg/dL (0.6-1.3)
[2021-03-11 10:25] VITALS: BP 142/91; PULSE 104; O2SAT 100
[2021-03-11 10:55] LABS: Appearance SLIGHTLY CLOUDY (CLEAR); Bacteria MANY /HPF (NEGATIVE); Bilirubin NEGATIVE (NEGATIVE); Blood SMALL Ery/ul (0-5); Epithelial Cells RARE /HPF (FEW); Glucose NEGATIVE (NEGATIVE); Ketones TRACE (NEGATIVE); Leukocyte Esterase NEGATIVE (NEGATIVE); Mucus SLIGHT /HPF (NEGATIVE); Nitrite NEGATIVE (NEGATIVE); Protein,Urine Dip NEGATIVE (Negative); Specific Gravity 1.008 (1.005-1.025); Urobilinogen NEGATIVE mg/dL (0-1)
[2021-03-11] MEDS ORDERED: KEFLEX 500 MG PO ONE (11:04)
[2021-03-11] MEDS ORDERED: KEFLEX 500 MG ONE (11:08)
== END 2021-03-11 11:31 | disposition home or self-care (01) ==
LOC: ED 08:22
DX: O23.42 Unspecified infection of urinary tract in pregnancy, second trimester (principal); O21.9 Vomiting of pregnancy, unspecified; Z3A.12 12 weeks gestation of pregnancy
CPT/HCPCS: 36000; 36415; 80047; 81001; 83605; 85025; 87086; 96360; 96361; 96374; 99284; J2405; A9270-GY

== ENCOUNTER 2021-07-31 14:28 | Observation (INO) | payer OTHER ==
[2021-07-31 14:58] LABS: Appearance CLEAR (CLEAR); Bacteria FEW /HPF (NEGATIVE); Bilirubin NEGATIVE (NEGATIVE); Blood NEGATIVE Ery/ul (0-5); Epithelial Cells RARE /HPF (FEW); Glucose NEGATIVE (NEGATIVE); Ketones NEGATIVE (NEGATIVE); Leukocyte Esterase NEGATIVE (NEGATIVE); Nitrite NEGATIVE (NEGATIVE); Protein,Urine Dip NEGATIVE (Negative); Specific Gravity 1.002 (1.005-1.025); Urobilinogen NEGATIVE mg/dL (0-1); WBC 0-2 /HPF (0-5)
[2021-07-31 15:08] LABS: Amphetamine,Urine NEGATIVE (NEGATIVE); Barbiturate,Urine NEGATIVE (NEGATIVE); Benzodiazepine,Urine NEGATIVE (NEGATIVE); Cocaine,Urine NEGATIVE (NEGATIVE); Methadone,Urine NEGATIVE (NEGATIVE); Opiate,Urine NEGATIVE (NEGATIVE); PCP,Urine NEGATIVE (NEGATIVE); THC,Urine NEGATIVE (NEGATIVE)
[2021-07-31] MEDS ORDERED: Lactated Ringers 1,000 ML IV ONE (15:36)
[2021-07-31 15:49] LABS: Hematocrit 28.9 % (35-47); Mean Cell Volume 91.5 fl (78-100); Mean Corpuscular Hemoglobin 28.5 pg (26-32); Mean Corpuscular Hgb Concent. 31.1 g/dl (32-36); Mean Platelet Volume 9.9 fl (7.5-11.0); Platelet Count 366 K/mm3 (150-450); Red Blood Count 3.16 M/mm3 (4.1-5.4); Red Cell Distribution Width 13.3 % (11.5-14.0); White Blood Count 14.7 K/mm3 (4.0-10.5)
[2021-07-31 16:03] LABS: ALBUMIN 3.7 g/dL (3.5-5.0); ALKALINE PHOSPHATASE 157 U/L (38-126); ANION GAP 14.5 MEQ/L (5-15); BLOOD UREA NITROGEN 8 mg/dL (7-17); CHLORIDE 105 mmol/L (98-107); Calcium 9.3 mg/dL (8.4-10.2); Carbon Dioxide 23 mmol/L (22-30); Creatinine 1 0.61 mg/dL (0.52-1.04); EST GLOMERULAR FILTRATION RATE > 60.0 ML/MIN; Glucose 96 mg/dL (74-106); Potassium 3.7 mmol/L (3.5-5.1); SGOT/AST 19 U/L (14-36); SGPT/ALT 12 U/L (0-35); SODIUM 139 mmol/L (137-145); Total Protein 6.4 g/dL (6.3-8.2)
[2021-07-31 16:08] VITALS: O2SAT 99
[2021-07-31 16:20] LABS: BAND 4 % (0.0-2.0); Eosinophil 1 % (0.00-3.0); Lymphocytes 14 % (24-44); Monocyte 7 % (0.0-12.0); Neutrophils 74 % (36.0-66.0); Platelet Estimate NORMAL (NORMAL); Total Cells Counted 100
[2021-07-31 16:21] LABS: ANISOCYTOSIS 1+; Absolute Neutrophil Ct (ANC) 11.52 (1.4-6.9); Polychromasia RARE
[2021-07-31 16:43] VITALS: BP 143/92; PULSE 114
[2021-07-31] MEDS ORDERED: ROCEPHIN 1 Gm-D5w 50 ml Bag** 1 G/50 ML IVPB IV SCH (17:30)
--- NOTE | 2021-07-31 21:39 | XRAY ---
Indication: Right flank pain. Third trimester . Two-dimensional renal sonogram performed. Comparison: None Both kidneys normal in reniform shape with normal color perfusion. Right kidney measures 11.8 x 5.1 x 5.1 cm and the left measures 11.3 x 6.5 x 5.4 cm. Renal pelvis appears mildly prominent bilaterally. No focal solid/cystic renal mass. Cortical medullary differentiation preserved. Images of the normally distended urinary bladder is slightly effaced by fetus. Normal bilateral ureteral jets. Impression: Mild prominent renal pelvis bilaterally possibly related to third trimester . Remaining renal sonogram is negative.
== END 2021-07-31 18:18 | disposition home or self-care (01) ==
LOC: OB 14:28
PROVIDERS: ADMIT Obstetrics & Gynecology; ATTEND Obstetrics & Gynecology
DX: O26.893 Other specified pregnancy related conditions, third trimester (principal); Z3A.32 32 weeks gestation of pregnancy; R10.9 Unspecified abdominal pain
CPT/HCPCS: 36415; 76770; 80053; 80307; 81001; 85025; G0378; J0696

== ENCOUNTER 2021-08-03 10:35 | Observation (INO) | payer OTHER ==
[2021-08-03] MEDS ORDERED: Lactated Ringers 1,000 ML IV ONE (11:17)
[2021-08-03] MEDS ORDERED: Zofran 4 MG/2 ML VIAL IV PRN (11:20)
[2021-08-03 11:23] LABS: COVID AG -BINAX NOW RAPID TEST NEGATIVE (NEGATIVE)
[2021-08-03 12:38] LABS: Hematocrit 29.1 % (35-47); Mean Cell Volume 91.8 fl (78-100); Mean Corpuscular Hemoglobin 28.4 pg (26-32); Mean Corpuscular Hgb Concent. 30.9 g/dl (32-36); Mean Platelet Volume 10.3 fl (7.5-11.0); Platelet Count 363 K/mm3 (150-450); Red Blood Count 3.17 M/mm3 (4.1-5.4); Red Cell Distribution Width 13.5 % (11.5-14.0); White Blood Count 13.5 K/mm3 (4.0-10.5)
[2021-08-03] MEDS ORDERED: ROCEPHIN 1 Gm-D5w 50 ml Bag** 1 G/50 ML IVPB IV ONE (12:47)
[2021-08-03 13:03] LABS: ALBUMIN 3.5 g/dL (3.5-5.0); ALKALINE PHOSPHATASE 153 U/L (38-126); ANION GAP 11.4 MEQ/L (5-15); BLOOD UREA NITROGEN 7 mg/dL (7-17); CHLORIDE 107 mmol/L (98-107); Calcium 9.1 mg/dL (8.4-10.2); Carbon Dioxide 23 mmol/L (22-30); Creatinine 1 0.47 mg/dL (0.52-1.04); EST GLOMERULAR FILTRATION RATE > 60.0 ML/MIN; Glucose 86 mg/dL (74-106); Potassium 3.8 mmol/L (3.5-5.1); SGOT/AST 21 U/L (14-36); SGPT/ALT 12 U/L (0-35); SODIUM 138 mmol/L (137-145); Total Protein 6.5 g/dL (6.3-8.2)
[2021-08-03 14:39] LABS: ANISOCYTOSIS 1+; BAND 2 % (0.0-2.0); Eosinophil 1 % (0.00-3.0); Hypochromia 1+; Lymphocytes 11 % (24-44); Microcytosis 1+; Monocyte 2 % (0.0-12.0); Neutrophils 84 % (36.0-66.0); Platelet Estimate NORMAL (NORMAL); Total Cells Counted 100; Toxic Granulation 1+
[2021-08-04] MEDS ORDERED: ROCEPHIN 1 Gm-D5w 50 ml Bag** 1 G/50 ML IVPB IV SCH (10:00)
== END 2021-08-03 14:25 | disposition home or self-care (01) ==
LOC: MED SURG 10:35
PROVIDERS: ADMIT Obstetrics & Gynecology; ATTEND Obstetrics & Gynecology
DX: O13.3 Gestational [pregnancy-induced] hypertension without significant proteinuria, third trimester (principal); Z3A.32 32 weeks gestation of pregnancy; Z79.899 Other long term (current) drug therapy
CPT/HCPCS: 36415; 80053; 85025; 99000; G0378; J0696; J2405

== ENCOUNTER 2021-08-12 11:14 | Observation (INO) | payer OTHER ==
[2021-08-12 11:45] LABS: Absolute Neutrophil Ct (ANC) 9.19 (1.4-6.9); BASOPHIL % 0.3 % (0.0-0.4); Basophil (Absolute #) 0.03 (0-0.4); Eosinophil % 0.6 % (0.00-5.0); Eosinophil (Absolute #) 0.07 (0-0.5); Lymphocyte (Absolute #) 1.71 (1.0-4.6); Lymphocytes % 14.4 % (24.0-44.0); Mean Cell Volume 90.6 fl (78-100); Mean Corpuscular Hemoglobin 28.1 pg (26-32); Mean Platelet Volume 9.9 fl (7.5-11.0); Monocyte (Absolute #) 0.86 (0.0-1.3); Monocytes % 7.3 % (0.0-12.0); Neutrophil % 77.4 % (36.0-66.0); Platelet Count 360 K/mm3 (150-450); Red Cell Distribution Width 13.7 % (11.5-14.0); White Blood Count 11.9 K/mm3 (4.0-10.5)
[2021-08-12 11:50] LABS: Appearance CLEAR (CLEAR); Bacteria RARE /HPF (NEGATIVE); Bilirubin NEGATIVE (NEGATIVE); Blood NEGATIVE Ery/ul (0-5); Glucose NEGATIVE (NEGATIVE); Ketones NEGATIVE (NEGATIVE); Leukocyte Esterase NEGATIVE (NEGATIVE); Mucus SLIGHT /HPF (NEGATIVE); Nitrite NEGATIVE (NEGATIVE); Protein,Urine Dip NEGATIVE (Negative); Specific Gravity 1.009 (1.005-1.025); Urobilinogen NEGATIVE mg/dL (0-1)
[2021-08-12 11:58] LABS: Creatinine, Urine Random 42.5 mg/dl
[2021-08-12] MEDS ORDERED: Celestone Soluspan 6MG/ML IM ONE (12:00)
[2021-08-12 12:06] LABS: ALBUMIN 3.3 g/dL (3.5-5.0); ALKALINE PHOSPHATASE 152 U/L (38-126); ANION GAP 12.8 MEQ/L (5-15); BLOOD UREA NITROGEN 9 mg/dL (7-17); CHLORIDE 106 mmol/L (98-107); Calcium 9.2 mg/dL (8.4-10.2); Carbon Dioxide 23 mmol/L (22-30); EST GLOMERULAR FILTRATION RATE > 60.0 ML/MIN; Glucose 84 mg/dL (74-106); Potassium 4.2 mmol/L (3.5-5.1); SGOT/AST 18 U/L (14-36); SGPT/ALT 10 U/L (0-35); SODIUM 137 mmol/L (137-145); Uric Acid 5.4 mg/dL (2.6-6.0)
== END 2021-08-12 13:20 | disposition home or self-care (01) ==
LOC: OB 11:14
PROVIDERS: ADMIT Obstetrics & Gynecology; ATTEND Obstetrics & Gynecology
DX: Z34.03 Encounter for supervision of normal first pregnancy, third trimester (principal); Z3A.34 34 weeks gestation of pregnancy
CPT/HCPCS: 36415; 59025; 80053; 81001; 82570; 84156; 84550; 85025; 96372; G0378; J0702

== ENCOUNTER 2021-08-19 13:33 | Observation (INO) | payer OTHER ==
[2021-08-19 13:54] VITALS: BP 142/92
[2021-08-19 14:01] LABS: Hematocrit 30.1 % (35-47); Hemoglobin 9.3 gm/dl (12.0-16.0); Mean Cell Volume 92.9 fl (78-100); Mean Corpuscular Hemoglobin 28.7 pg (26-32); Mean Corpuscular Hgb Concent. 30.9 g/dl (32-36); Mean Platelet Volume 9.9 fl (7.5-11.0); Platelet Count 311 K/mm3 (150-450); Red Blood Count 3.24 M/mm3 (4.1-5.4); Red Cell Distribution Width 15.6 % (11.5-14.0); White Blood Count 15.2 K/mm3 (4.0-10.5)
[2021-08-19 14:22] LABS: ALBUMIN 3.4 g/dL (3.5-5.0); ALKALINE PHOSPHATASE 163 U/L (38-126); ANION GAP 11.5 MEQ/L (5-15); BLOOD UREA NITROGEN 11 mg/dL (7-17); CHLORIDE 104 mmol/L (98-107); Calcium 9.5 mg/dL (8.4-10.2); Carbon Dioxide 24 mmol/L (22-30); EST GLOMERULAR FILTRATION RATE > 60.0 ML/MIN; Glucose 90 mg/dL (74-106); Potassium 4.2 mmol/L (3.5-5.1); SGOT/AST 22 U/L (14-36); SGPT/ALT 21 U/L (0-35); SODIUM 136 mmol/L (137-145); Total Protein 6.4 g/dL (6.3-8.2); Uric Acid 6.6 mg/dL (2.6-6.0)
[2021-08-19 14:34] LABS: ANISOCYTOSIS 1+; BAND 2 % (0.0-2.0); Hypochromia 1+; Lymphocytes 17 % (24-44); Microcytosis 1+; Monocyte 2 % (0.0-12.0); Neutrophils 79 % (36.0-66.0); Platelet Estimate NORMAL (NORMAL); Total Cells Counted 100; Toxic Granulation 1+
[2021-08-19 14:59] LABS: Creatinine, Urine Random 16.4 mg/dl
== END 2021-08-19 14:15 | disposition home or self-care (01) ==
LOC: OB 13:33
PROVIDERS: ADMIT Obstetrics & Gynecology; ATTEND Obstetrics & Gynecology
DX: O16.3 Unspecified maternal hypertension, third trimester (principal); Z3A.35 35 weeks gestation of pregnancy
CPT/HCPCS: 36415; 59025; 80053; 82570; 84156; 84550; 85025; G0378

== ENCOUNTER 2021-08-21 01:10 | Inpatient (IN) | payer OTHER ==
[2021-08-21] MEDS ORDERED: Lactated Ringers 1,000 ML IV ONE ×5 (01:46→09:19)
[2021-08-21] MEDS ORDERED: Magnesium Sulfate 40 Gm/1000 Ml H2O Premix*** 1,000 ML IV ONE (01:46)
[2021-08-21] MEDS ORDERED: TRANDATE 100MG/20 ML MDV IV PRN ×3 (01:51→07:34)
[2021-08-21] MEDS ORDERED: TRANDATE 20 MG/4 ML SYRINGE IV PRN (01:59)
[2021-08-21] MEDS ORDERED: Lactated Ringers 1,000 ML IV SCH (02:00)
[2021-08-21 02:11] LABS: Hematocrit 32.5 % (35-47); Hemoglobin 9.9 gm/dl (12.0-16.0); Mean Cell Volume 93.9 fl (78-100); Mean Corpuscular Hemoglobin 28.6 pg (26-32); Mean Corpuscular Hgb Concent. 30.5 g/dl (32-36); Mean Platelet Volume 10.6 fl (7.5-11.0); Platelet Count 289 K/mm3 (150-450); Red Blood Count 3.46 M/mm3 (4.1-5.4); Red Cell Distribution Width 16.7 % (11.5-14.0)
[2021-08-21] MEDS: Magnesium Sulfate 40 Gm/1000 Ml H2O Premix*** 1,000 ML IV SCH ×2 (02:19→21:39)
[2021-08-21 02:21] LABS: Appearance CLEAR (CLEAR); Bacteria RARE /HPF (NEGATIVE); Bilirubin NEGATIVE (NEGATIVE); Blood MODERATE Ery/ul (0-5); Epithelial Cells RARE /HPF (FEW); Glucose NEGATIVE (NEGATIVE); Ketones NEGATIVE (NEGATIVE); Leukocyte Esterase NEGATIVE (NEGATIVE); Mucus SLIGHT /HPF (NEGATIVE); Nitrite NEGATIVE (NEGATIVE); Protein,Urine Dip NEGATIVE (Negative); Specific Gravity 1.006 (1.005-1.025); Urobilinogen NEGATIVE mg/dL (0-1); WBC 0-2 /HPF (0-5)
[2021-08-21 02:25] LABS: ALBUMIN 3.6 g/dL (3.5-5.0); ALKALINE PHOSPHATASE 171 U/L (38-126); ANION GAP 13.5 MEQ/L (5-15); BLOOD UREA NITROGEN 9 mg/dL (7-17); CHLORIDE 105 mmol/L (98-107); Calcium 9.2 mg/dL (8.4-10.2); Carbon Dioxide 23 mmol/L (22-30); Creatinine 1 0.62 mg/dL (0.52-1.04); EST GLOMERULAR FILTRATION RATE > 60.0 ML/MIN; Glucose 92 mg/dL (74-106); Potassium 3.9 mmol/L (3.5-5.1); SGOT/AST 20 U/L (14-36); SGPT/ALT 17 U/L (0-35); SODIUM 138 mmol/L (137-145); Total Protein 6.7 g/dL (6.3-8.2)
[2021-08-21 02:34] LABS: Amphetamine,Urine NEGATIVE (NEGATIVE); Barbiturate,Urine NEGATIVE (NEGATIVE); Benzodiazepine,Urine NEGATIVE (NEGATIVE); Cocaine,Urine NEGATIVE (NEGATIVE); Methadone,Urine NEGATIVE (NEGATIVE); Opiate,Urine NEGATIVE (NEGATIVE); PCP,Urine NEGATIVE (NEGATIVE); THC,Urine NEGATIVE (NEGATIVE)
[2021-08-21] MEDS ORDERED: TRANDATE 20 MG/4 ML SYRINGE IV ONE (02:43)
[2021-08-21 02:55] LABS: INR 0.87 (0.8-3.0); PROTIME 10.3 SECONDS (9.4-12.5)
[2021-08-21 02:58] LABS: PTT 24.2 SECONDS (25.1-36.5)
[2021-08-21] MEDS ORDERED: TYLENOL 325 MG PO PRN (04:07)
[2021-08-21 06:02] LABS: ABO TYPING B; Antibody Screen NEGATIVE (NEGATIVE); RH TYPING POSITIVE
[2021-08-21] MEDS ORDERED: CEFAZOLIN 2 GM-D5W BAG** 2 GM/50 ML ML IV SCH (07:00)
[2021-08-21] MEDS ORDERED: APRESOLINE 20 MG/ML INJ IV PRN (07:36)
[2021-08-21] MEDS ORDERED: Reglan 10 MG/2 ML IV SCH (08:00)
[2021-08-21] MEDS ORDERED: SOD CITRATE-CITRIC ACID SOLN PO SCH (08:00)
[2021-08-21] MEDS ORDERED: Pepcid 20 MG VIAL IV SCH (08:00)
[2021-08-21] MEDS ORDERED: Transderm Scop 1.5MG Patch TOP PRN (08:08)
[2021-08-21] MEDS ORDERED: Astramorph-Pf 5 MG/10 ML ONE (08:12)
[2021-08-21] MEDS ORDERED: Pitocin 10 UNITS/ML ONE ×2 (08:41→09:02)
[2021-08-21] MEDS ORDERED: MORPHINE SULFATE 2 MG INJ IV PRN (09:00)
[2021-08-21] MEDS ORDERED: Mylicon 80MG PO PRN (09:00)
[2021-08-21] MEDS ORDERED: Zofran 4 MG/2 ML VIAL IV PRN (09:00)
[2021-08-21] MEDS ORDERED: DEMEROL 50 MG IV PRN ×2 (09:00)
[2021-08-21] MEDS ORDERED: CLARITIN 10 MG PO PRN (09:00)
[2021-08-21] MEDS ORDERED: Narcan 0.4 MG/ML IV PRN (09:00)
[2021-08-21] MEDS ORDERED: Dextrose 5%-Lr IV Solution 1000 ML 1,000 ML IV SCH (09:00)
[2021-08-21] MEDS ORDERED: Ambien 10 MG PO PRN (09:00)
[2021-08-21] MEDS ORDERED: LANSINOH 40 GM TOP PRN (09:00)
[2021-08-21] MEDS ORDERED: NORCO 5/325 MG PO PRN (09:00)
[2021-08-21] MEDS ORDERED: HOLD NARCOTIC ANALGESICS AND SEDATIVES X24 HR MC PRN (09:00)
[2021-08-21] MEDS ORDERED: CORTISONE 1% CREAM TP PRN (09:00)
[2021-08-21] MEDS ORDERED: BENADRYL 50 MG/ML IV PRN (09:00)
[2021-08-21] MEDS ORDERED: Nubain 10 MG/ML IV PRN (09:00)
[2021-08-21] MEDS ORDERED: Anucort-HC SUPPOSITORY PR PRN (09:00)
[2021-08-21] MEDS ORDERED: TRANEXAMIC ACID 1000 MG/10 ML 1,000 MG in Sodium Chloride 0.9% 100 ML BAG 100 ML IV ONE (09:05)
[2021-08-21] MEDS ORDERED: Zofran 4 MG/2 ML VIAL ONE (09:17)
[2021-08-21] MEDS ORDERED: Sodium Chloride 0.9% 1000 ML 1,000 ML ONE (09:19)
[2021-08-21] MEDS ORDERED: Versed 2 MG/2 ML Injection ONE (09:21)
[2021-08-21 09:50] LABS: CROSS MATCH (PRBC) COMPATIBLE (COMPATIBLE)
[2021-08-21 10:27] LABS: Hematocrit 31.2 % (35-47); Hemoglobin 9.4 gm/dl (12.0-16.0)
[2021-08-21 15:28] LABS: Hematocrit 30.8 % (35-47); Hemoglobin 9.5 gm/dl (12.0-16.0)
[2021-08-21] MEDS: Trandate 100 MG PO SCH ×2 (15:48→22:11)
[2021-08-21] MEDS: KEFZOL 1 GM/50 ML PREMIX** 1 GM/50 ML IVPB IV SCH ×2 (15:48→22:11)
[2021-08-21] MEDS ORDERED: Colace 100 MG ONE (22:06)
[2021-08-21] MEDS: Colace 100 MG PO SCH (22:11)
[2021-08-21] MEDS: PERCOCET TABLET 5/325MG PO PRN (23:31)
[2021-08-22 04:35] LABS: Hematocrit 28.5 % (35-47); Hemoglobin 8.6 gm/dl (12.0-16.0); Mean Cell Volume 94.1 fl (78-100); Mean Corpuscular Hemoglobin 28.4 pg (26-32); Mean Corpuscular Hgb Concent. 30.2 g/dl (32-36); Mean Platelet Volume 10.5 fl (7.5-11.0); Platelet Count 280 K/mm3 (150-450); Red Blood Count 3.03 M/mm3 (4.1-5.4); Red Cell Distribution Width 17.8 % (11.5-14.0); White Blood Count 18.3 K/mm3 (4.0-10.5)
[2021-08-22 05:31] LABS: BAND 5 % (0.0-2.0); Basophilic Stippling 1+; Lymphocytes 3 % (24-44); Metamyelocyte 1 %; Monocyte 4 % (0.0-12.0); Neutrophils 87 % (36.0-66.0); Platelet Estimate NORMAL (NORMAL); Polychromasia 1+; Total Cells Counted 100
[2021-08-22] MEDS ORDERED: Sodium Chloride 0.9% 10 ML FLUSH Syringe IJ PRN (07:09)
[2021-08-22] MEDS: KEFZOL 1 GM/50 ML PREMIX** 1 GM/50 ML IVPB IV SCH (07:59)
[2021-08-22] MEDS ORDERED: ENOXAPARIN SODIUM SQ ONE (08:00)
[2021-08-22] MEDS: PERCOCET TABLET 5/325MG PO PRN (08:35)
--- NOTE | 2021-08-22 10:25 | PCM.NOTE ---
Date and Time: 08/22/21 1013 Subjective Assessment: pod 1 pt is sp csection and doing well able to ambulate and tolerate diet at this time vss afebrile abd; soft incision c/d/intact nondistended uterus; firm lochia; mild a/p sp csection pod 1 with chronic htn will continue with labetolol 200mg however only bid at this time will anticipate discharge tomorrow OBJECTIVE DATA Vital Signs: Vital Signs - 24 hr Temp Pulse Resp BP BP Pulse Ox 08/22/21 09:00 86 18 116/81 116/81 98 08/22/21 08:15 85 18 122/67 122/67 98 08/22/21 07:00 82 20 122/67 96 08/22/21 06:00 79 20 123/67 94 L 08/22/21 05:00 75 20 113/57 95 08/22/21 04:00 84 20 109/60 95 08/22/21 03:00 81 20 120/69 96 08/22/21 02:00 97.4 F 74 20 110/59 96 08/22/21 01:00 76 20 108/62 97 08/22/21 00:00 97.5 F 93 H 20 101/56 94 L 08/21/21 23:00 93 H 20 109/65 109/65 97 08/21/21 22:00 87 20 122/71 122/71 98 08/21/21 21:00 82 20 123/74 96 08/21/21 20:00 87 20 121/69 96 08/21/21 19:00 97.9 F 80 18 111/64 95 08/21/21 18:30 88 18 122/81 95 08/21/21 17:30 79 18 113/62 113/62 94 L 08/21/21 16:30 79 16 119/66 119/66 96 08/21/21 15:30 88 20 130/77 130/77 95 08/21/21 14:30 87 20 133/91 133/91 99 08/21/21 13:30 79 18 125/78 125/78 98 08/21/21 13:00 97 08/21/21 12:30 80 18 138/82 139/82 98 08/21/21 12:00 81 18 135/92 100 08/21/21 11:30 97.6 F 76 18 141/85 141/85 99 11/26/21 11:15 90 18 144/82 100 08/21/21 11:00 80 18 166/85 98 08/21/21 10:45 82 18 130/88 100 08/21/21 10:30 71 20 154/91 154/91 99 Pain Assessment - Last Documented Pain Intensity [Bilateral 5 Anterior] Pain Intensity 5 Pain Scale Used 0-10 Pain Scale Intake and Output: Intake & Output 08/19/21 08/20/21 08/21/21 08/22/21 11:59 11:59 11:59 11:59 Intake Total 1439 5579 Output Total 3703 4346 Balance -481 -382 Weight 96.615 kg Lab Results: Lab Results-Last 24 Hours 08/21/21 08/21/21 08/21/21 Range/Units 10:02 10:24 15:10 WBC (4.0-10.5) K/mm3 RBC (4.1-5.4) M/mm3 Hgb 9.4 L (12.0-16.0) gm/dl Hct 31.2 L (35-47) % MCV (78-100) fl MCH (26-32) pg MCHC (32-36) g/dl RDW (11.5-14.0) % Plt Count (150-450) K/mm3 MPV (7.5-11.0) fl Segmented Neutrophils (36.0-66.0) % Band Neutrophils (0.0-2.0) % Lymphocytes (Manual) (24-44) % Monocytes (Manual) (0.0-12.0) % Metamyelocytes % Platelet Estimate (NORMAL) RBC Morphology Polychromasia Basophilic Stippling Magnesium 3.3 H 4.7 H (1.6-2.3) mg/dL 08/21/21 08/21/21 08/22/21 Range/Units 15:10 21:00 03:18 WBC (4.0-10.5) K/mm3 RBC (4.1-5.4) M/mm3 Hgb 9.5 L (12.0-16.0) gm/dl Hct 30.8 L (35-47) % MCV (78-100) fl MCH (26-32) pg MCHC (32-36) g/dl RDW (11.5-14.0) % Plt Count (150-450) K/mm3 MPV (7.5-11.0) fl Segmented Neutrophils (36.0-66.0) % Band Neutrophils (0.0-2.0) % Lymphocytes (Manual) (24-44) % Monocytes (Manual) (0.0-12.0) % Metamyelocytes % Platelet Estimate (NORMAL) RBC Morphology Polychromasia Basophilic Stippling Magnesium 5.6 H* 5.8 H* (1.6-2.3) mg/dL 08/22/21 Range/Units 03:49 WBC 18.3 H (4.0-10.5) K/mm3 RBC 3.03 L (4.1-5.4) M/mm3 Hgb 8.6 L (12.0-16.0) gm/dl Hct 28.5 L (35-47) % MCV 94.1 (78-100) fl MCH 28.4 (26-32) pg MCHC 30.2 L (32-36) g/dl RDW 17.8 H (11.5-14.0) % Plt Count 280 (150-450) K/mm3 MPV 10.5 (7.5-11.0) fl Segmented Neutrophils 87 H (36.0-66.0) % Band Neutrophils 5 H (0.0-2.0) % Lymphocytes (Manual) 3 L (24-44) % Monocytes (Manual) 4 (0.0-12.0) % Metamyelocytes 1 % Platelet Estimate NORMAL (NORMAL) RBC Morphology NORMAL Polychromasia 1+ Basophilic Stippling 1+ Magnesium (1.6-2.3) mg/dL Assessment/Plan (1) Status post primary low transverse section Current Visit: Yes Status: Acute Code(s): Z98.891 - HISTORY OF UTERINE SCAR FROM PREVIOUS SURGERY
[2021-08-22] MEDS: FERREX 150 PO SCH (10:51)
[2021-08-22] MEDS: MOTRIN 400 MG PO PRN ×2 (10:51→19:36)
[2021-08-22] MEDS: Colace 100 MG PO SCH ×2 (10:51→22:07)
[2021-08-22] MEDS: Trandate 100 MG PO SCH ×3 (10:52→22:07)
[2021-08-22] MEDS: TYLENOL EXTRA STRENGTH 500 MG PO PRN (14:50)
[2021-08-23] MEDS: TYLENOL EXTRA STRENGTH 500 MG PO PRN ×2 (02:00→11:34)
[2021-08-23 04:14] VITALS: O2SAT 97
[2021-08-23] MEDS: MOTRIN 400 MG PO PRN (07:51)
--- NOTE | 2021-08-23 09:59 | PCM.NOTE ---
Date and Time: 08/23/2156 Subjective Assessment: pod 2 sp csection pt resting in bed and doing well ambulating and tolerating diet vss afebrile abd; soft incision c/d/intact uterus; firm lochia;mild a/p sp csection pod 2 anemia chronic htn will dc home on labetolol 200mg bid dc home today fu office in 2 wks OBJECTIVE DATA Vital Signs: Vital Signs - 24 hr Temp Pulse Resp BP BP Pulse Ox 08/23/21 08:10 98.1 F 99 H 18 126/70 08/23/21 04:00 97.8 F 93 H 20 124/71 97 08/22/21 23:53 102 H 117/68 08/22/21 19:55 98.0 F 87 20 137/69 99 08/22/21 16:16 103 H 116/63 08/22/21 14:35 98.1 F 82 20 113/59 08/22/21 10:54 87 20 135/73 Pain Assessment - Last Documented Pain Intensity [Bilateral 3 Anterior] Pain Intensity 4 Pain Scale Used 0-10 Pain Scale Intake and Output: Intake & Output 08/20/21 08/21/21 08/22/21 08/23/21 11:59 11:59 11:59 11:59 Intake Total 6657 8816 1999 Output Total 0284 4231 Balance -481 -657 1999 Weight 96.615 kg Assessment/Plan (1) Status post primary low transverse section Current Visit: Yes Status: Acute Code(s): Z98.891 - HISTORY OF UTERINE SCAR FROM PREVIOUS SURGERY
--- NOTE | 2021-08-23 10:04 | PCM.DS ---
Discharge Summary Date of Admission: 08/21/21 01:10 Admitting Physician: PAU PIEDRA DO Consults: Consults on Case 08/21/21 01:45 Notify Physician ROUTINE 08/21/21 05:28 Notify Anesthesia Provider ROUTINE 08/21/21 07:00 Notify Physician OF ADMISSION 08/21/21 07:09 Notify Anesthesia Provider PRN 08/21/21 09:26 Navigation ONCE Primary Care Provider: PEYTON LARA Allergies Allergies avocado Allergy (Severe, Verified 08/21/21 03:36) Hives banana Allergy (Severe, Verified 08/21/21 03:36) Hives latex Allergy (Severe, Verified 08/21/21 03:36) Hives mold Allergy (Intermediate, Verified 08/21/21 03:36) Hives prednisolone Allergy (Intermediate, Verified 08/21/21 03:36) Vomiting Hospital Summary - Hospital Course Hospital Course: pt admitted on aug 21 for preeclampsia with severe features and was 35 6/7 wks gestation with signific visual disturbance and elevated bp with elevated prot/cr ratio. pt was subsequently placed on magso4 and subsequently underwent csection and was done so without complication however was noted having uterine atone at the time of procedure for which txa was given as well as methergine, hemabate and uterine artery ligation performed. pt was then noted to be stable with an ebl at 800 cc. during postop period pt did well and was placed on continued mgso4 for 24 hours and placed on labetolol 200mg tid. pt on pod 2 stable for discharge at this time and will go home on labetolol 200mg bid with fu in office in 2wks for postop evaluation. all questions answered to her satisfaction and declined narcotics prior to discharge and will go home on ibuprofen. pt had delivered live baby girl at the time of csection and was noted being 5.11 in wt. - Vitals & Intake/Output Vital Signs: Vital Signs Temperature 98.1 F 08/23/21 08:10 Pulse Rate 99 H 08/23/21 08:10 Respiratory Rate 18 08/23/21 08:10 Blood Pressure 126/70 08/23/21 08:10 O2 Sat by Pulse Oximetry 97 08/23/21 04:00 Intake & Output: Intake & Output 08/20/21 08/21/21 08/22/21 08/23/21 11:59 11:59 11:59 11:59 Intake Total 3403 0378 1999 Output Total 1079 5700 Balance -481 382 1999 Weight 96.615 kg - Lab Result Diagrams: 08/22/21 03:49 08/21/21 01:55 Micro Results-Entire Visit: Microbiology 08/21/21 01:55 Urine Culture - Final Urine, Indwelling Catheter NO GROWTH - Procedures and Test Procedures and Tests throughout Hospitalization: Therapy Orders & Screens 08/21/21 09:48 Standby ROUTINE Comment: Diagnosis: OB CHECK, DIZZY, BLURRED VISION, ELEVATED BP Final Diagnosis/Problem List - Final Discharge Diagnosis/Problem (1) Status post primary low transverse section Current Visit: Yes Status: Acute Code(s): Z98.891 - HISTORY OF UTERINE SCAR FROM PREVIOUS SURGERY - Discharge Disposition: Home, Self-Care Condition: Stable Prescriptions: New Ibuprofen 800 mg PO Q8H PRN PRN 28 Days #46 tablet MDD 3 PRN Reason: Mild To Moderate Pain Continue Vits W-Ca,Fe,FA(<1Mg) [] 1 each PO DAILY Aspirin 81 gm Chew [Baby Aspirin 81 mg Chew] 2 tab PO DAILY Labetalol HCl 100 mg [Trandate 100 MG] 200 mg PO TID Follow up with: PEYTON LARA NP [Primary Care Provider] - PAU PIEDRA DO [ACTIVE STAFF] - 2 weeks (keep incision clean and dry should fu in 2 wks) Forms: OB Discharge Instructions
[2021-08-23 10:34] LABS: HBsAg Screen Negative (Negative)
[2021-08-23] MEDS: Trandate 100 MG PO SCH (11:34)
[2021-08-23] MEDS: Colace 100 MG PO SCH (11:34)
[2021-08-23] MEDS: FERREX 150 PO SCH (11:34)
[2021-08-23 11:43] VITALS: BP 140/78; PULSE 96
--- NOTE | 2021-08-25 11:10 | OP ---
SURGERY DATE/TIME: 08/21/2021 0826 PREOPERATIVE DIAGNOSIS: Intrauterine at 35 weeks and 6 days gestation with preeclampsia with severe features requiring delivery at this time. POSTOPERATIVE DIAGNOSIS: Intrauterine at 35 weeks and 6 days gestation with preeclampsia with severe features requiring delivery at this time with nuchal cord x1 and uterine atony. PROCEDURE: Primary section, low flap transverse uterine incision, Pfannenstiel skin incision, bilateral uterine artery ligation. SURGEON: Roverto Rose D.O. PRECISION LENS TECHNICIAN: Jeremy Melendez, surgical supplies sterilizer. ANESTHESIA: Spinal. ESTIMATED BLOOD LOSS: 300 cc. COMPLICATIONS: None. INDICATIONS: The risks, benefits, indications and alternatives of the procedure were reviewed with the patient prior to procedure. The patient understood the risk of infection, bleeding, bowel injury, bladder injury, ureteral injury, uterine perforation associated with the surgery and desires to have this surgery as a possible means to alleviate her current medical condition. DESCRIPTION OF PROCEDURE AND FINDINGS: At this point the patient is taken to the operating room where her spinal anesthesia was found to adequate. She was then prepared and draped in normal sterile fashion in the dorsal supine position with leftward tilt. A Pfannenstiel skin incision is made with a scalpel and carried through to the underlying layer of the fascia with Bovie. The fascia was then incised in the midline and the incision extended laterally with Zambrano scissors. The superior aspect of the fascial incision was then grasped Herminio clamps elevated and the underlying rectus muscles dissected off bluntly. Attention is then turned to the inferior aspect of this incision which in similar fashion was grasped, tented up with Herminio clamps and the rectus muscles dissected off bluntly. The rectus muscles were then at the midline and the peritoneum identified, tented up and entered sharply with Metzenbaum scissors. The peritoneal incision was then extended superiorly and inferiorly with good visualization of the bladder. The bladder blade was then inserted and the vesicouterine peritoneum identified, grasped with a pickup and entered sharply with Metzenbaum scissors. This incision was then extended laterally and bladder flap created digitally. The bladder blade was then reinserted and the lower uterine segment incised in transverse fashion with a scalpel. The uterine incision was then extended laterally with bandage scissors. The bladder blade was then removed. The infant's head was delivered atraumatically. The nose and mouth were suctioned with suction bulb and the cord clamped and cut. The was then handed off to awaiting nurses. From this point the placenta was then removed manually. The uterus exteriorized and cleared of all clots and debris. The uterine incision was repaired with 1-0 chromic in a running locked fashion. A second layer of the same suture was used to obtain excellent hemostasis. The uterus appeared to be continued boggy and there was uterine atony noted. The patient was given tranexamic acid (TXA) 1 gm, was also given Methergine and was also given Hemabate during the time of the procedure. The patient's uterus remained boggy at this time. From this point the uterus was then returned to the abdomen with less bleeding noted. The gutters were cleared of clots and the peritoneal muscle closed in interrupted fashion. The subcutaneous layer was closed 3-0 Vicryl suture and the skin was closed with absorbable doreen called INSORB. The patient tolerated the procedure well. Sponge, lap, needle and instrument counts were correct x2. The patient was then taken to the recovery room in stable condition. The patient delivered a live baby girl at 0851 hours. The weight of the baby was 5 pounds 11 ounces. 's were 8 at 1 minute and 9 at 5 minutes.
== END 2021-08-23 12:00 | disposition home or self-care (01) | DRG 788 ==
LOC: OBSVTOIN 01:10 → OB 01:10
PROVIDERS: ADMIT Obstetrics & Gynecology; ATTEND Obstetrics & Gynecology
PROC: 10D00Z1 Extraction of Products of Conception, Low, Open Approach (ICD-10-PCS; principal; 2021-08-21)
DX: O14.14 Severe pre-eclampsia complicating childbirth (principal); O69.0XX0 Labor and delivery complicated by prolapse of cord, not applicable or unspecified; O62.2 Other uterine inertia; Z3A.35 35 weeks gestation of pregnancy; Z37.0 Single live birth
CPT/HCPCS: 36415; 59510; 62322; 80053; 80307; 81001; 83735; 84550; 85014; 85018; 85025; 85027; 85610; 85730; 86850; 86900; 86901; 86922; 87086; 87340; 94799; 99140; G0010; J0690; J1650; J2250; J2274; J2405; J2590; L0625; A9270-GY

== ENCOUNTER 2023-03-02 22:06 | Emergency (ER) | payer BC ==
[2023-03-02] MEDS ORDERED: Sodium Chloride 0.9% 1000 ML 1,000 ML IV STA (23:08)
[2023-03-02] MEDS ORDERED: Zofran 4 MG/2 ML VIAL IV ONE (23:08)
[2023-03-02] MEDS ORDERED: TORAdol 30 mg Injection IV ONE (23:27)
[2023-03-02] MEDS ORDERED: Zofran 4 MG/2 ML VIAL ONE (23:28)
[2023-03-02] MEDS ORDERED: TORAdol 30 mg Injection ONE (23:29)
[2023-03-02] MEDS ORDERED: Sodium Chloride 0.9% 1000 ML 1,000 ML ONE (23:29)
[2023-03-02 23:33] LABS: Absolute Neutrophil Ct (ANC) 5.14 x10^3/uL (1.4-6.9); BASOPHIL % 0.1 % (0.0-0.4); Basophil (Absolute #) 0.01 x10^3/uL (0-0.4); Eosinophil % 0.1 % (0.00-5.0); Eosinophil (Absolute #) 0.01 x10^3/uL (0-0.5); Hematocrit 43.5 % (35-47); Hemoglobin 14.4 g/dL (12.0-16.0); IMMATURE GRAN # 0.01 x10^3u/L (0.00-0.03); IMMATURE GRAN % 0.1 % (0.00-0.4); Lymphocyte (Absolute #) 0.84 x10^3/uL (1.0-4.6); Lymphocytes % 12.5 % (24.0-44.0); Mean Cell Volume 88.6 fL (78-100); Mean Corpuscular Hemoglobin 29.3 pg (26-32); Mean Corpuscular Hgb Concent. 33.1 g/dL (32-36); Monocyte (Absolute #) 0.69 x10^3/uL (0.0-1.3); Monocytes % 10.3 % (0.0-12.0); Neutrophil % 76.9 % (36.0-66.0); Platelet Count 313 x10^3/uL (150-450); Red Blood Count 4.91 x10^6/uL (4.1-5.4); Red Cell Distribution Width 12.9 % (11.5-14.0); White Blood Count 6.7 x10^3/uL (4.0-10.5)
--- NOTE | 2023-03-02 23:36 | ERPHSYRPT ---
- History of Present Illness Time Seen by Provider: 03/02/23 23:31 Source: patient Exam Limitations: no limitations Patient Subjective Stated Complaint: vomiting and diarrhea x 2 days Triage Nursing Assessment: pt brought back to ER in wheelchair. Pt alert and oriented x4, cooperative. Pt c/o nausea, vomiting and diarrhea x2 days. Pt denies any pain at this time. Abd soft with active bs x4 quad, nontender. Physician History: Patient is a 27-year-old female presents to our ED for evaluation of nausea vomiting and diarrhea. Emesis is nonbloody nonbilious. Symptoms started 2 days ago. Patient unable to tolerate p.o. Patient feels very weak and debilitated. No rash. No fever. No trauma. Patient has no urinary symptomology. No urinary frequency urgency or dysuria. Symptoms are constant. Symptoms are m oderate in intensity. No specific worsening improving factors. No obvious sick contacts. Patient reports he is otherwise healthy. She voices no other complaints or concerns at this time. Portions of this note were created with voice recognition technology. There may be grammatical, spelling, punctuation or sound alike errors Timing/Duration: yesterday Severity: moderate Modifying Factors: Improves With: nothing Associated Symptoms: denies symptoms Allergies/Adverse Reactions: avocado Allergy (Severe, Verified 03/02/23 22:27) Hives banana Allergy (Severe, Verified 03/02/23 22:27) Hives latex Allergy (Severe, Verified 03/02/23 22:27) Hives mold Allergy (Intermediate, Verified 03/02/23 22:27) Hives prednisolone Allergy (Intermediate, Verified 03/02/23 22:27) Vomiting Home Medications: Labetalol HCl 100 mg [Trandate 100 MG] 200 mg PO DAILY 08/13/21 [History] Hx Tetanus, Diphtheria Vaccination/Date Given: Yes Hx Influenza Vaccination/Date Given: No Hx Pneumococcal Vaccination/Date Given: No Travel Risk - International Travel Have you traveled outside of the country in past 3 weeks: No - Coronavirus Screening Are you exhibiting any of the following symptoms?: Yes Symptoms: Fever, Vomiting/Diarrhea Close contact with a COVID-19 positive Pt in past 14-21 Days: No - Vaccine Status Have you recieved a Covid-19 vaccination: Yes Aircraft [employer]: [employer] - Vaccination Dates Date of 2cond Vaccination (if applicable): . - Review of Systems Constitutional: No Symptoms, No Fever, No Chills Eyes: No Symptoms Ears, Nose, & Throat: No Symptoms Respiratory: No Symptoms, No Cough, No Dyspnea Cardiac: No Symptoms, No Chest Pain, No Edema, No Syncope Abdominal/Gastrointestinal: No Symptoms, No Abdominal Pain, No Nausea, No V omiting, No Diarrhea Genitourinary Symptoms: No Symptoms, No Dysuria Musculoskeletal: No Symptoms, No Back Pain, No Neck Pain Skin: No Symptoms, No Rash Neurological: No Symptoms, No Dizziness, No Focal Weakness, No Sensory Changes Psychological: No Symptoms Endocrine: No Symptoms Hematologic/Lymphatic: No Symptoms Immunological/Allergic: No Symptoms All Other Systems: Reviewed and Negative - Past Medical History Pertinent Past Medical History: Yes Neurological History: No Pertinent History ENT History: No Pertinent History Cardiac History: Hypertension Respiratory History: No Pertinent History Endocrine Medical History: No Pertinent History Musculoskeletal History: No Pertinent History GI Medical History: No Pertinent History History: Other Psycho-Social History: No Pertinent History Female Reproductive Disorders: No Pertinent History Other Medical History: hx of kidney stones - Past Surgical History Past Surgical History: Yes Neuro Surgical History: No Pertinent History Cardiac: No Pertinent History Respiratory: No Pertinent History Gastrointestinal: No Pertinent History Genitourinary: No Pertinent History Musculoskeletal: No Pertinent History Female Surgical History: Section Other Surgical History: wisdom tooth removal and a cyst from the jaw mouth her mouth was wired shut for 8 weeks - Social History Smoking Status: Never smoker Exposure to second hand smoke: No Drug Use: none Patient Lives Alone: No Significant Family History: no pertinent family hx - Female History Hx Last Menstrual Period: 2 weeks Hx Now: No - Nursing Vital Signs Nursing Vital Signs: Initial Vital Signs Temperature 98.5 F 03/02/23 22:14 Pulse Rate 112 H 03/02/23 22:14 Respiratory Rate 18 03/02/23 22:14 Blood Pressure 153/117 03/02/23 22:14 O2 Sat by Pulse Oximetry 96 03/02/23 22:14 Pain Scale Pain Intensity 5 - Physical Exam General Appearance: no apparent distress, alert Eye Exam: PERRL/EOMI, eyes nml inspection Ears, Nose, Throat Exam: normal ENT inspection, TMs normal, pharynx normal, moist mucous membranes, dry mucous membranes Neck Exam: normal inspection, non-tender, supple, full range of motion Respiratory Exam: normal breath sounds, lungs clear, airway intact, No respiratory distress Cardiovascular Exam: regular rate/rhythm, normal heart sounds, normal peripheral pulses Gastrointestinal/Abdomen Exam: soft, normal bowel sounds, No tenderness, No mass Back Exam: normal inspection, normal range of motion, No CVA tenderness, No vertebral tenderness Extremity Exam: normal inspection, normal range of motion, pelvis stable Neurologic Exam: alert, oriented x 3, cooperative, normal mood/affect, nml cerebellar function, nml station & gait, sensation nml, No motor deficits Skin Exam: normal color, warm, dry, No rash Lymphatic Exam: No adenopathy SpO2 Interpretation: normal SpO2: 97 O2 Delivery: Room Air - Course Nursing assessment & vital signs reviewed: Yes Ordered Tests: Active Orders 24 hr Category Date Time Status IV Insertion STAT Care 03/02/23 23:08 Active CBC W DIFF Stat Lab 03/02/23 23:31 Completed CMP Stat Lab 03/02/23 23:31 Completed LIPASE Stat Lab 03/02/23 23:31 Completed UA W/RFX UR CULTURE Stat Lab 03/02/23 23:25 Received Medication Summary Discontinued Medications Generic Name Dose Route Start Last Admin Trade Name Freq PRN Reason Stop Dose Admin Acetaminophen 975 mg 03/03/23 00:30 03/03/23 00:31 Acetaminophen 325 Mg Tablet PO 03/03/23 00:31 975 mg STAT STA Administration Acetaminophen Confirm 03/03/23 00:31 Acetaminophen 325 Mg Tablet Administered 03/03/23 00:32 Dose 975 mg .ROUTE .STK-MED ONE Sodium Chloride 1,000 mls @ 999 mls/hr 03/02/23 23:08 03/03/23 00:34 Sodium Chloride 0.9% 1000 Ml IV 03/03/23 00:08 Infused .Q1H1M STA Infusion Sodium Chloride Confirm 03/02/23 23:29 Sodium Chloride 0.9% 1000 Ml Administered 03/02/23 23:30 Dose 1,000 mls @ ud .ROUTE .STK-MED ONE Ketorolac Tromethamine 30 mg 03/02/23 23:27 03/02/23 23:31 Ketorolac Tromethamine 30 Mg/Ml Inj IV 03/02/23 23:28 30 mg STAT ONE Administration Ketorolac Tromethamine Confirm 03/02/23 23:29 Ketorolac Tromethamine 30 Mg/Ml Inj Administered 03/02/23 23:30 Dose 30 mg .ROUTE .STK-MED ONE Ondansetron HCl 4 mg 03/02/23 23:08 03/02/23 23:31 Ondansetron Hcl 4 Mg/2 Ml Vial IV 03/02/23 23:09 4 mg STAT ONE Administration Ondansetron HCl Confirm 03/02/23 23:28 Ondansetron Hcl 4 Mg/2 Ml Vial Administered 03/02/23 23:29 Dose 4 mg .ROUTE .STK-MED ONE Potassium Chloride 40 meq 03/03/23 00:57 Potassium Chloride Tab 10 Meq Tab PO 03/03/23 00:58 STAT ONE Lab/Rad Data: Laboratory Result Diagrams 03/02/23 23:31 03/02/23 23:31 Laboratory Results 03/02/23 03/02/23 Range/Units 23:31 23:31 WBC 6.7 (4.0-10.5) x10^3/uL RBC 4.91 (4.1-5.4) x10^6/uL Hgb 14.4 (12.0-16.0) g/dL Hct 43.5 (35-47) % MCV 88.6 (78-100) fL MCH 29.3 (26-32) pg MCHC 33.1 (32-36) g/dL RDW 12.9 (11.5-14.0) % Plt Count 313 (150-450) x10^3/uL MPV 9.0 (7.5-11.0) fL Gran % 76.9 H (36.0-66.0) % Immature Gran % (Auto) 0.1 (0.00-0.4) % Nucleat RBC Rel Count 0.0 (0.00-0.1) % Eos # (Auto) 0.01 (0-0.5) x10^3/uL Immature Gran # (Auto) 0.01 (0.00-0.03) x10^3u/L Absolute Lymphs (auto) 0.84 L (1.0-4.6) x10^3/uL Absolute Monos (auto) 0.69 (0.0-1.3) x10^3/uL Absolute Nucleated RBC 0.00 (0.00-0.01) x10^3u/L Lymphocytes % 12.5 L (24.0-44.0) % Monocytes % 10.3 (0.0-12.0) % Eosinophils % 0.1 (0.00-5.0) % Basophils % 0.1 (0.0-0.4) % Absolute Granulocytes 5.14 (1.4-6.9) x10^3/uL Basophils # 0.01 (0-0.4) x10^3/uL Sodium 136 L (137-145) mmol/L Potassium 3.4 L (3.5-5.1) mmol/L Chloride 99 (98-107) mmol/L Carbon Dioxide 22 (22-30) mmol/L Anion Gap 17.9 H (5-15) MEQ/L BUN 10 (7-17) mg/dL Creatinine 0.72 (0.52-1.04) mg/dL Estimated GFR > 60.0 ML/MIN Glucose 110 H (74-106) mg/dL Calcium 9.3 (8.4-10.2) mg/dL Total Bilirubin 0.50 (0.2-1.3) mg/dL AST 31 (14-36) U/L ALT 21 (0-35) U/L Alkaline Phosphatase 92 (38-126) U/L Serum Total Protein 8.8 H (6.3-8.2) g/dL Albumin 4.8 (3.5-5.0) g/dL Lipase 72 (23-300) U/L - Progress Progress: improved Progress Note: Patient a 27-year-old female presents to our ED with nausea vomiting diarrhea. Patient unable to tolerate p.o. Physical exam reveals a week appearing female slightly dehydrated with dry oral mucous membranes. Patient has been experiencing nausea vomiting diarrhea/fluid loss for 2 days. Laboratory testing ordered. CBC CMP ordered. Potassium 3.4. Patient received 40 mEq oral potassium replacement. CBC otherwise within normal limits. Lipase negative. Patient provided us with a urine sample however it was not enough to run a urine. Patient received a liter of normal saline. Toradol and aspirin administered. Zofran administered. Patient currently asymptomatic. She feels well. Patient tolerating p.o. Patient is ready for discharge. Vital stable. She voices no other complaints or concerns at this time. Will discharge home. Patient agrees to follow-up with her primary care doctor within 48 hours for reevaluation. Complexity of problem addressed is moderate, acute complicated with systemic illness. No critical care time Complexity of data reviewed and analyzed is moderate. Dr. Foster independently reviewed patient's laboratory studies. Findings were clinically correlated. We observed a hypokalemia. Patient received an oral dose of potassium. Dehydration observed based on history and physical exam. Normal saline administered. Later after arrival patient complained of a global headache. Patient received Tylenol and Toradol. Headache resolved resolved. Patient's abdominal discomfort was undifferentiated. No focal or lateralizing pain. Zofran administered for nausea. Risk of complication and or risk morbidity/mortality of patient management is moderate. Patient received IV fluids, IV Zofran IV Toradol and oral Tylenol. We will discharge home. Patient agrees to follow-up with her primary care doctor within 48 hours for reevaluation. Patient has no urinary symptomology. Patient states she wants to be discharged. Patient will follow-up with her [facility] doctor. Urinalysis can be performed if patient develops symptomology Plan of care established via shared decision making. Time to discharge is approximately 15 minutes. Vital stable 03/03/23 01:06 03/03/23 01:19 Counseled pt/family regarding: lab results, diagnosis, need for follow-up - Departure Departure Disposition: Home Clinical Impression: Nausea vomiting and diarrhea, Dehydration, Hypokalemia, Headache Condition: Stable Critical Care Time: No Referrals: [facility] [Primary Care Provider] - Follow up/PCP as directed Additional Instructions: Discharge/Care Plan ALLYSON SAEED was seen on 03/03/23 in the Emergency Room. The patient was counseled regarding Diagnosis,Lab results, Imaging studies, need for follow up and when to return to the Emergency Room. Prescriptions given: Discharge Note I have spoken with the patient and/or caregivers. I have explained the patient's condition, diagnosis and treatment plan based on the information available to me at this time. I have answered the patient's and/or caregiver's questions and addressed any concerns. The patient and/or caregivers have as good understanding of the patient's diagnosis, condition and treatment plan as can be expected at this point. The vital signs have been stable. The patient's condition is stable and appropriate for discharge from the emergency department. The patient will pursue further outpatient evaluation with the primary care physician or other designated or consulting physician as outlined in the discharge instructions. The patient and/or caregivers are agreeable to this plan of care and follow-up instructions have been explained in detail. The patient and/or caregivers have received these instruction. The patient/and or caregivers are aware that any significant change in condition or worsening of symptoms should prompt an immediate return to this or the closest emergency department or call 911.
[2023-03-02 23:48] LABS: ALBUMIN 4.8 g/dL (3.5-5.0); ALKALINE PHOSPHATASE 92 U/L (38-126); ANION GAP 17.9 MEQ/L (5-15); BLOOD UREA NITROGEN 10 mg/dL (7-17); CHLORIDE 99 mmol/L (98-107); Calcium 9.3 mg/dL (8.4-10.2); Carbon Dioxide 22 mmol/L (22-30); Creatinine 1 0.72 mg/dL (0.52-1.04); EST GLOMERULAR FILTRATION RATE > 60.0 ML/MIN; Glucose 110 mg/dL (74-106); LIPASE 72 U/L (23-300); Potassium 3.4 mmol/L (3.5-5.1); SGOT/AST 31 U/L (14-36); SGPT/ALT 21 U/L (0-35); SODIUM 136 mmol/L (137-145); Total Protein 8.8 g/dL (6.3-8.2)
[2023-03-03] MEDS ORDERED: TYLENOL 325 MG PO STA (00:30)
[2023-03-03] MEDS ORDERED: TYLENOL 325 MG ONE (00:31)
[2023-03-03] MEDS ORDERED: Klor Con PO ONE ×2 (00:57→01:31)
[2023-03-03 00:59] VITALS: O2SAT 97
[2023-03-03 01:39] VITALS: BP 129/92; PULSE 83
== END 2023-03-03 01:48 | disposition home or self-care (01) ==
LOC: ED 22:06
DX: R11.2 Nausea with vomiting, unspecified (principal); R19.7 Diarrhea, unspecified; E86.0 Dehydration; E87.6 Hypokalemia; R51.9 Headache, unspecified; I10 Essential (primary) hypertension; Z79.899 Other long term (current) drug therapy
CPT/HCPCS: 36000; 36415; 80053; 81001; 83690; 85025; 96360; 96374; 96375; 99284; J1885; J2405; A9270-GY